=== PATIENT | male | born 1945 | race Hispanic/Latino ===

== ENCOUNTER 2018-07-22 06:23 | Emergency (ER) | payer MEDICARE, OTHER ==
[~2018-07-22] VITALS: Ht 162.6 cm; Wt 104.3 kg
[~2018-07-22 06:23] MED LIST: AMLODIPINE BESYL5 MG PO; ASPIRIN81 MG PO; ATENOLOL25 MG PO; DIGOXIN125 MCG PO; FUROSEMIDE40 MG PO; GABAPENTIN100 MG PO; GLIPIZIDE ER2.5 MG PO; ISOSORBIDE DINIT5 MG PO; JANUMET 50-1,01 EACH PO; LIPITOR20 MG PO; LISINOPRIL10 MG PO; NEXIUM20 MG PO; NIASPAN500 MG PO; RANEXA500 MG PO; SPIRONOLACTONE25 MG PO; TRICOR48 MG PO; WARFARIN SODIUM1 MG
--- OUTSIDE RECORDS SUMMARY | 2018-07-22 06:25 | XMS REPORT | Summary of Care ---
Author Author LUCY Pelletier, BARON Schrader Unknown Address Unknown Phone Unavailable Care Team Providers Care Inspector Welded Parts Name Role Phone VERONICA Pelletier, TOOTIE Unavailable Unavailable ABNER P.A., CARLO Unavailable Unavailable LUCY Pelletier, BARON Unavailable Unavailable VERONICA RAND [place], TOOTIE Dhillon Unavailable Unavailable Unavailable Unavailable Functional Status Name Dates Details Functional status health issues are not documented Status: Name Dates Details Cognitive status health issues are not documented Status: Problems Name Dates Details Screening for prostate cancer (V76.44, Z12.5) Status: Active Gastroenteritis (558.9, K52.9) Status: Active Diabetes mellitus type 2, uncontrolled (250.02, E11.65) Status: Active 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, 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) Status: Active Essential hypertension, benign (401.1, I10) Status: Active Diabetes with neurologic complications (250.60, E11.49) Status: Active Fatigue (780.79, R53.83) Status: Active Vitamin D deficiency (268.9, E55.9) Status: Active Claudication, intermittent (443.9, I73.9) Status: Active Edema (782.3, R60.9) Status: Active Medicare annual wellness visit, subsequent (V70.0, Z00.00) Status: Active Mixed hyperlipidemia (272.2, E78.2) Status: Active Peripheral neuropathy (356.9, G62.9) Status: Active Advance care planning (V65.49, Z71.89) Status: Active Encounter for mini-mental status examination Status: Active At moderate risk for fall (V15.88, Z91.81) Status: Active Depression screen (V79.0, Z13.31) Status: Active Need for hepatitis C screening test (V73.89, Z11.59) Status: Active CAD (coronary artery disease) (414.00, I25.10) Status: Active Acute pain of right knee (719.46, M25.561) Status: Active Need for Tdap vaccination (V06.1, Z23) Status: Active Need for zoster vaccination (V04.89, Z23) Status: Active Controlled type 2 diabetes mellitus with diabetic neuropathy, without long-term current use of insulin (250.60, E11.40) Status: Active Acute internal derangement of knee, right (717.9, M23.91) Status: Active Medications Name Dates Details Atorvastatin Calcium 80 MG Oral Tablet TAKE 1 TABLET AT BEDTIME. Quantity: 90 TOOTIE MARTIN M.D. Active Clopidogrel Bisulfate 75 MG Oral Tablet TAKE 1 TABLET DAILY. * Quantity: 90 Refills: 0 Active Isosorbide Mononitrate 20 MG Oral Tablet TAKE 1 TABLET TWICE DAILY * Quantity: 180 Refills: 1 TOOTIE MARTIN M.D. Active Furosemide 40 MG Oral Tablet Take one (1) tablet(s) by mouth daily. * Quantity: 90 Refills: 1 BARON AYALA M.D. * Start : 02-Jul-2017 Active Benazepril HCl - 10 MG Oral Tablet TAKE 1 TABLET DAILY. * Refills: 0 Active Aspirin 325 MG Oral Tablet TAKE 1 TABLET DAILY. * Refills: 0 Active Invokana 100 MG Oral Tablet Take before first meal * Quantity: 90 Refills: 0 BARON AYALA M.D. * Start : 26-May-2018 Active Gabapentin 600 MG Oral Tablet TAKE 2 TABLET TWICE DAILY FOR NEUROPATHY* * Quantity: 360 Refills: 1 TOOTIE MARTIN M.D. Active Fenofibrate 145 MG Oral Tablet TAKE 1 TABLET DAILY. * Quantity: 90 Refills: 1 TOOTIE MARTIN M.D. Active Esomeprazole Magnesium 40 MG Oral Capsule Delayed Release TAKE ONE CAPSULE BY MOUTH EVERY DAY * Quantity: 90 Refills: 1 TOOTIE MARTIN M.D. * Start : 28-Oct-2017 Active Toujeo SoloStar 300 UNIT/ML Subcutaneous Solution Pen-injector INJECT 33 UNITS SUBCUTANEOUSLY AT BEDTIME TITRATE TO GOAL DIRECTED * Quantity: 3 Refills: 1 BARON AYALA M.D. * Start : 17-Apr-2017 Active 3 x 1.5 ML Pen BD Pen Needle Mini U/F 31G X 5 MM USE EVERY DAY * Quantity: 1 Refills: 0 BARON AYALA M.D. * Start : 01-May-2018 Active 100 Unit Box Xu Microlet Lancets Check BG 3x a day * Quantity: 1 Refills: 4 LUCY Pelletier, BARON * Start : 17-Apr-2017 Active 100 Unit Package Accu-Chek SmartView In Vitro Strip TEST 3 TIMES DAILY. * Quantity: 3 Refills: 3 LUCY Pelletier, BARON * Start : 23-Apr-2017 Active 100 Strip Box Januvia 100 MG Oral Tablet TAKE 1 TABLET BY MOUTH EVERY DAY * Quantity: 90 Refills: 1 LUCY Pelletier, BARON * Start : 02-Oct-2017 Active Shingrix 50 MCG Intramuscular Suspension Reconstituted Administer at pharmacy as directed * Quantity: 1 Refills: 0 ABNER P.A., CARLO * Start : 20-May-2018 Active Tdap (Adacel) Inject at pharmacy as directed * Quantity: 1 Refills: 0 ABNER P.A., CARLO * Start : 20-May-2018 Active 0.5 ML Syringe Diclofenac Sodium 1 % Transdermal Gel Apply 4 grams to right knee QID PRN pain * Quantity: 1 Refills: 0 ABNER P.A., CARLO * Start : 20-May-2018 Active 100 GM Tube Allergies and Adverse Reactions Name Dates Details MetFORMIN HCl TABS (Allergy) Status: Active Past Medical History Name Dates Details History of depression (V11.8, Z86.59) Status: Resolved History of diabetes mellitus (V12.29, Z86.39) Status: Resolved History of hyperlipidemia (V12.29, Z86.39) Status: Resolved History of myocardial infarction (412, I25.2) Status: Resolved Procedures Procedure Dates Details XRAY Knee series 33337 Date: 20-May-2018 MR Knee wo contrast [id number] Date: 20-Jun-2018 History of Heart surgery Completed Immunization Name Dates Details Zoster (Zostavax) on: Jul-2011 Fluzone Quadrivalent 0.5 ML Intramuscular Suspension on: 31-Mar-2016 Influenza, high dose seasonal, preservative-free Lot #: [id number] on: 12-Apr-2017 Influenza, high dose seasonal, preservative-free Lot #: [id number] on: 11-Mar-2018 Family History Name Dates Details Family history unknown (V49.89, Z78.9) Status: Active Name Dates Details Family history unknown (V49.89, Z78.9) Status: Active Social History Name Dates Details - Status: Name Dates Details Never smoker Vital Signs Date Test Result Details [id number] Height 63 in Status: Weight 238.5 lb Status: Body Mass Index Calculated 42.25 kg/m2 Status: Body Surface Area Calculated 2.08 m2 Status: Results Date Description Value Details [id number] [U] XRAY KNEE 4 OR MORE VWS RIGHT [id number] XR KNEE 4 OR MORE VWS RIGHT Images acquired, not reported on this accession number. Plan of Care Name Dates Details Planned Observations Planned Goals not documented Planned Encounters Appointment; BARON AYALA M.D. On: 20-Aug-2018 8:40 Appointment; TOOTIE MARTIN M.D. On: 28-Aug-2018 10:00 Interventions Provided Medication Changes* Januvia 100 MG Oral Tablet - Renew Instructions Name Dates Details Instructions not documented Encounters Appointment; TOOTIE MARTIN M.D. Encounter Diagnosis: Problem not documented On: 21-Dec-2016 9:45 Appointment; TOOTIE MARTIN M.D. Encounter Diagnosis: Problem not documented On: 04-Jan-2017 12:30 Appointment; TOOTIE MARTIN M.D. Encounter Diagnosis: Problem not documented On: 28-Mar-2017 14:15 Appointment; BARON AYALA M.D. Encounter Diagnosis: Problem not documented On: 17-Apr-2017 13:00 Appointment; BARON AYALA M.D. Encounter Diagnosis: Problem not documented On: 30-Apr-2017 14:00 Appointment; BARON AYALA M.D. Encounter Diagnosis: Problem not documented On: 02-Jul-2017 14:40 Appointment; TOOTIE MARTIN M.D. Encounter Diagnosis: Problem not documented On: 28-Aug-2017 13:15 Appointment; BARON AYALA M.D. Encounter Diagnosis: Problem not documented On: 02-Oct-2017 14:00 Appointment; MERY BANDA M.D. Encounter Diagnosis: Problem not documented On: 17-Dec-2017 14:15 Appointment; ROSA SY Encounter Diagnosis: Problem not documented On: 27-Dec-2017 15:00 Appointment; BARON AYALA M.D. Encounter Diagnosis: Problem not documented On: 19-Feb-2018 13:40 Appointment; TOOTIE MARTIN M.D. Encounter Diagnosis: Problem not documented On: 26-Feb-2018 9:30 Appointment; CARLO LEVINE P.A. Encounter Diagnosis: Problem not documented On: 20-May-2018 8:15 Appointment; BARON AYALA M.D. Encounter Diagnosis: Problem not documented On: 20-May-2018 11:00 Appointment; ANJUM THOMPSON M.D. Encounter Diagnosis: Problem not documented On: 20-Jun-2018 14:00
--- OUTSIDE RECORDS SUMMARY | 2018-07-22 06:25 | XMS REPORT | Continuity of Care Document ---
Author Author [employer] Address Unknown Phone Unavailable Problems Problem Status Onset Date Classification Date Reported Comments Source UNK Active 07/17/2018 [facility] M25.561 - PAIN IN RIGHT KNEE Active 05/20/2018 [facility] Medications Medication Details Route Status Patient Instructions Ordering Provider Order Date Source Allergies, Adverse Reactions, Alerts Substance Category Reaction Severity Reaction type Status Date Reported Comments Source Immunizations Immunization Date Given Site Status Last Updated Comments Source Results Order Name Results Value Reference Range Date Interpretation Comments Source Chest 2 views DX Chest 2 views DX Clinical Indication: Coughing - preop exam Comparison: None FINDINGS: The PA and lateral chest radiographs shows normal lung volumes without interstitial or airspace opacities, pleural effusions or pneumothorax. The heart size and pulmonary vasculature are normal. The trachea is midline. There are no clinically significant osseous abnormalities noted. There are sternal wires and mediastinal surgical clips. IMPRESSION: No chest radiographic evidence of acute cardiopulmonary disease. SL: [id number] 07/18/2018 - - Read by: Loki Pennington MD Dictated Date/time: 07/18/18 11:33 Electronically Signed by: Loki Pennington MD 07/18/18 11:33 FINAL REPORT [facility] Knee wo contrast MRI Knee wo contrast MRI EXAMINATION: MRI of the right knee without contrast HISTORY: M23.91 Unspecified internal derangement of right knee; anterior and medial right knee pain x 2 months; right knee medial compartment chondrosis COMPARISON: Radiographs dated 05/20/2018 are reviewed. TECHNIQUE: Multiplanar, multisequence magnetic resonance imaging of the right knee is performed with an extremity coil without contrast. FINDINGS: Menisci: --Medial: The anterior horn, body, and posterior horn are intact. --Lateral: The anterior horn, body, and posterior horn are intact. Ligaments: The cruciate ligaments are intact. The medial collateral ligament and lateral collateral ligament complex are intact. Extensor mechanism: There is mild distal patellar tendinosis. The extensor mechanism is intact. Muscles: There is normal signal intensity and muscle bulk of the musculature at the knee. Cartilage: Within the medial compartment, there are foci of grade 3-4, near full-thickness to full-thickness, chondrosis along the anterior to central weightbearing medial femoral condyle and small near full-thickness chondral defect along the anterior aspect of the medial tibial plateau with underlying foci of subchondral edema. There are small foci of grade 2, deep partial thickness chondrosis along the posterior weightbearing and inferior aspect of the posterior flexion zone of the medial femoral condyle. Within the lateral compartment, there is no focal chondrosis or subchondral marrow edema. Within the patellofemoral compartment, there is a focal area of deep partial thickness chondrosis and chondral fissuring along the patellar median ridge near the mid pole the patella. The trochlear articular cartilage is normal. Bone: Again, there are foci of subchondral edema along the anterior to central weightbearing aspect of the medial compartment. There is mild ill-defined subcortical marrow edema within the central aspect of the proximal tibia. There is no acute fracture. There are no suspicious bone marrow replacing lesions. Soft tissues: There is mild subcutaneous edema superficial to the patellar tendon. There is a small to moderate-sized knee effusion with mild scattered synovitis. There is a 12 x 3 mm cartilaginous loose body along the lateral aspect of the intercondylar notch. There is no Cook's cyst. IMPRESSION: 1. Moderate medial and mild patellofemoral compartment, bicompartmental chondrosis of the right knee as described in detail above, most severe along the anterior to central weightbearing aspect of the medial compartment with underlying foci of subchondral edema. 2. Small to moderate-sized right knee effusion with mild scattered synovitis. There is also a 12 x 3 mm cartilaginous loose body along the lateral aspect of the intercondylar notch. 3. Mild distal right patellar tendinosis without tendon tear. 4. Nonspecific, mild, ill-defined subcortical marrow edema within the central aspect of the proximal tibia without acute fracture. 5. Intact right knee menisci, cruciate ligaments, and collateral ligaments. 07/03/2018 - - Read by: Oh Marie MD Dictated Date/time: 07/03/18 14:45 Electronically Signed by: Oh Marie MD 07/03/18 14:59 FINAL REPORT OPIRiana Sama Knee 1-2 Views unilateral DX Knee 1-2 Views unilateral DX EXAM: XR RIGHT KNEE 2 VIEWS DATE: 05/20/2018 9:15 AM [facility] INDICATION: acute pain of right knee COMPARISON: None. TECHNIQUE: AP and lateral radiographs of the knee FINDINGS: No acute fracture or malalignment is identified. Mild medial compartment joint space narrowing is identified on these nonweightbearing radiographs. No knee joint effusion is present. No soft tissue abnormality is identified. IMPRESSION: No acute abnormality. 05/20/2018 - - This report was dictated by a Gathering Worker/Fellow. I have personally reviewed the images as well as the Resident's interpretation and agree with the findings. Read by: Stefan Arango MD Resident: Stefan Arango MD Dictated Date/time: 05/20/18 09:57 Electronically Signed by: Esther Reinoso MD 05/20/18 10:50 FINAL REPORT [facility] Vital Signs Vital Sign Value Date Comments Source Encounters Location Location Details Encounter Type Encounter Number Reason For Visit Attending Provider ADM Date DC Date Status Source Procedures Procedure Code Date Perfomer Comments Source
[2018-07-22] MEDS ORDERED: TRAMADOL HCL 50 MG TAB PO ONE (06:45)
--- NOTE | 2018-07-22 07:00 | NUR ---
RECEIVED REPORT FROM OFF GOING NURSE. PATIENT IN ROOM IN STRETCHER. PENDING X-RAY AND ULTRASOUND TO R/O DVT. MEDICATED FOR PAIN BY EVENING SHIFT NURSE. BED DOWN CALL ALESSANDRO ODOM.
--- NOTE | 2018-07-22 07:30 | Diagnostic Imaging Report ---
Exam: Left hip series, 2 views. History: Left hip pain. Comparison: None. Findings: There is normal bone mineralization. No evidence of fracture, malalignment, or soft tissue abnormality. There are moderate degenerative changes of the left hip with joint space during and bony osteophyte formation. AP radiograph of the pelvis demonstrates moderate right hip, bilateral sacroiliac, lower lumbar spine, and mild pubic symphysis degenerative changes. Bowel gas partially obscures visualization of the sacrum. Impression: No acute radiographic abnormality. Moderate bilateral hip osteoarthritis. Signed by: Dr. Tricia Dunn MD on 07/22/2018 7:26 AM
== END 2018-07-22 10:27 | disposition home or self-care (01) ==
LOC: ER 06:23
DX: M79.605 Pain in left leg (principal); M54.16 Radiculopathy, lumbar region; I10 Essential (primary) hypertension; E11.9 Type 2 diabetes mellitus without complications; E78.5 Hyperlipidemia, unspecified; Z86.73 Personal history of transient ischemic attack (TIA), and cerebral infarction without residual deficits
CPT/HCPCS: 93971; 99284

== ENCOUNTER → 2019-11-05 | Day surgery (SDC) | payer MEDICARE ==
[2019-11-02 09:40] LABS: BASOPHILS # (AUTO) 0.1 (0.0-0.1); BASOPHILS % 0.6 % (0.0-1.0); EOSINOPHILS # (AUTO) 0.3 (0.0-0.4); EOSINOPHILS % 3.4 % (0.0-6.0); HEMATOCRIT 43.9 % (38.2-49.6); HEMOGLOBIN 13.9 g/dL (14.0-18.0); LYMPHOCYTES # (AUTO) 1.7 (1.0-3.2); MEAN CORPUSCULAR HEMOGLOBIN 28.8 pg (28-32); MEAN CORPUSCULAR HGB CONC 31.7 g/dL (31-35); MEAN CORPUSCULAR VOLUME 90.9 fL (81-99); MONOCYTES # (AUTO) 0.6 (0.2-0.8); MONOCYTES % 7.5 % (4.4-11.3); NEUTROPHILS # (AUTO) 5.1 (2.1-6.9); PLATELET COUNT 226 x10e3/uL (140-360); RED BLOOD COUNT 4.83 x10e6/uL (4.3-5.7); RED CELL DISTRIBUTION WIDTH 13.3 % (11.7-14.4)
[~2019-11-05] MED LIST changes: +ASPIRIN325 MG PO; +ATORVASTATIN CA80 MG PO; +BENAZEPRIL HCL10 MG PO; +FENOFIBRATE145 MG PO; +GABAPENTIN300 MG PO; +INVOKANA100 MG PO; +ISOSORBIDE MONO30 MG PO; +JANUVIA100 MG PO; +LIDOCAINE HCL 2% LOCAL INJ 5 ML SDV VIAL INJ ONE; +NITROGLYCERIN0.4 MG SL; +OMEPRAZOLE40 MG PO; +PLAVIX75 MG PO; +PROPOFOL IV EMULSION 10 MG/ML 20 ML VIAL ONE; +TOUJEO SOL300 UNIT/1 SC
--- OUTSIDE RECORDS SUMMARY | 2019-11-05 06:21 | XMS REPORT | Summary of Care ---
Author ALVIN Bragg M.A. Organization Unknown Address Unknown Phone Unavailable Care Team Providers Care Tub Wash Operator Name Role Phone VERONICA Pelletier, TOOTIE Unavailable Unavailable KELLY Pelletier, JOSELINE Unavailable Unavailable ABNER P.A., CARLO Unavailable Unavailable LUCY Pelletier, BARON Unavailable Unavailable VERONICA RAND [place], TOOTIE Dhillon Unavailable Unavailable KELLY RAND, JOSELINE Unavailable Unavailable JAY RAND CO, ANJUM Viera Unavailable Unavailable MAICOL PENDLETONP, JESSE Unavailable Unavailable LUCY RAND [place], BARON PHIPPS Unavailable Unavaildavid ORTEZ MD, MARGARETUSTAFJesse Unavailable Unavailable GISELE RAND CO, JENNIFER BANERJEE Unavailable Unavailable Unavailable Unavailable Functional Status Name Dates Details Functional status health issues are not documented Status: Name Dates Details Cognitive status health issues are not d ocumented Status: Problems Name Dates Details Screening for prostate cancer (V76.44, Z 12.5) Status: Active 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, 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) Status: Active Fatigue (780.79, R53.83) Status: Active Vitamin D deficiency (268.9, E55.9) Status: Active Claudication, intermittent (443.9, I73.9 ) Status: Active Edema (782.3, R60.9) Status: Active Need for hepatitis C screening test (V73 .89, Z11.59) Status: Active CAD (coronary artery disease) (414.00, I 25.10) Status: Active Acute pain of right knee (719.46, M25.56 1) Status: Active Need for Tdap vaccination (V06.1, Z23) Status: Active Need for zoster vaccination (V04.89, Z23 ) Status: Active Acute low back pain with left-sided scia marii (724.2, M54.42) Status: Active Acute internal derangement of knee, righ t (717.9, M23.91) Status: Active Diabetes mellitus type 2, uncontrolled ( 250.02, E11.65) Status: Active Gastroenteritis (558.9, K52.9) Status: Active Bronchitis (490, J40) Status: Active Adult BMI 39.0-39.9 kg/sq m (V85.39, Z68 .39) Status: Active Essential hypertension, benign (401.1, I 10) Status: Active Mixed hyperlipidemia (272.2, E78.2) Status: Active Allergic dermatitis (692.9, L23.9) Status: Active Myofascial pain syndrome (729.1, M79.18) Status: Active Lumbar spondylosis (721.3, M47.816) Status: Active Diabetes with neurologic complications ( 250.60, E11.49) Status: Active 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, E13.42) Status: Active Peripheral neuropathy (356.9, G62.9) Status: Active Controlled type 2 diabetes mellitus with diabetic neuropathy, without long-term current use of insulin (250.60, E11.40) Status: Active Medicare annual wellness visit, subseque nt (V70.0, Z00.00) Status: Active Depression screen (V79.0, Z13.31) Status: Active Advance care planning (V65.49, Z71.89) Status: Active Encounter for mini-mental status examina tion Status: Active At moderate risk for fall (V15.88, Z91.8 1) Status: Active Need for vaccination with 13-polyvalent pneumococcal conjugate vaccine (V03.82, Z23) Status: Active Medications Name Dates Details Atorvastatin Calcium 80 MG Oral Tablet TAKE 1 TABLET BY MOUTH EVERYDAY AT BEDTIME Quantity: 90 TOOTIE MARTIN M.D. * Start : 21-Oct-2018 Active Clopidogrel Bisulfate 75 MG Oral Tablet TAKE 1 TABLET DAILY. * Quantity: 90 Refills: 0 Active Isosorbide Mononitrate 20 MG Oral Tablet Take 1 tablet by mouth twice a day * Quantity: 180 Refills: 1 TOOTIE MARTIN M.D. * Start : 17-Nov-2018 Active Furosemide 40 MG Oral Tablet TAKE 1 TABLET BY MOUTH EVERY DAY * Quantity: 90 Refills: 0 BARON AYALA M.D. * Start : 02-Jul-2017 Active Benazepril HCl - 10 MG Oral Tablet TAKE 1 TABLET DAILY. * Refills: 0 Active Aspirin 325 MG Oral Tablet TAKE 1 TABLET DAILY. * Refills: 0 Active Invokana 100 MG Oral Tablet TAKE 1 TABLET DAILY with breakfast for blood sugar. Keep well hydrated. * Quantity: 90 Refills: 0 BARON AYALA M.D. * Start : 26-Feb-2018 Active Gabapentin 600 MG Oral Tablet TAKE 2 TABLETS BY MOUTH in am and bedtime * Quantity: 360 Refills: 2 BARON AYALA M.D. * Start : 19-Aug-2018 Active Fenofibrate 145 MG Oral Tablet TAKE 1 TABLET BY MOUTH EVERY DAY * Quantity: 90 Refills: 1 TOOTIE MARTIN M.D. * Start : 19-Aug-2018 Active Esomeprazole Magnesium 40 MG Oral Capsule Delayed Release TAKE 1 CAPSULE BY MOUTH EVERY DAY * Quantity: 90 Refills: 1 TOOTIE MARTIN M.D. * Start : 28-Oct-2017 Active BD Pen Needle Mini U/F 31G X 5 MM USE EVERY DAY DIRECTED * Quantity: 1 Refills: 0 BARON AYALA M.D. * Start : 17-Apr-2017 Active 100 Unit Box Xu Microlet Lancets MISC Check BG 3x a day * Quantity: 1 Refills: 4 BARON AYALA M.D. * Start : 17-Apr-2017 Active 100 Unit Package Accu-Chek SmartView In Vitro Strip TEST 3 TIMES DAILY. * Quantity: 3 Refills: 3 BARON AYALA M.D. * Start : 23-Apr-2017 Active 100 Strip Box Januvia 100 MG Oral Tablet TAKE 1 TABLET BY MOUTH EVERY DAY * Quantity: 90 Refills: 1 BARON AYALA M.D. * Start : 02-Oct-2017 Active Shingrix 50 MCG Intramuscular Suspension Reconstituted Administer at pharmacy as directed * Quantity: 1 Refills: 0 ABNER P.CARLO Woodall * Start : 20-May-2018 Active Tdap (Adacel) Inject at pharmacy as directed * Quantity: 1 Refills: 0 ABNER P.A.CARLO * Start : 20-May-2018 Active 0.5 ML Syringe Cyclobenzaprine HCl - 5 MG Oral Tablet TAKE 1 TABLET 3 TIMES DAILY NEEDED. * Quantity: 90 Refills: 2 JOSELINE MENDOZA M.D. * Start : 01-Apr-2019 Active Allergies and Adverse Reactions Name Dates Details metFORMIN HCl TABS (Allergy) Status: Act hayden Past Medical History Name Dates Details History of BMI 40.0-44.9, adult (V85.41, Z68.41) Status: Resolved History of depression (V11.8, Z86.59) Status: Resolved History of diabetes mellitus (V12.29, Z8 6.39) Status: Resolved History of hyperlipidemia (V12.29, Z86.3 9) Status: Resolved History of myocardial infarction (412, I 25.2) Status: Resolved Procedures Procedure Dates Details History of Heart surgery Completed Immunization Name Dates Details Zoster (Zostavax) on: Jul-2011 Fluzone Quadrivalent 0.5 ML Intramuscula r Suspension on: 31-Mar-2016 Influenza, high dose seasonal, preservat hayden-free Lot #: [id number] on: 12-Apr-2017 Influenza, high dose seasonal, preservat hayden-free Lot #: [id number] on: 11-Mar-2018 Fluzone High-Dose 0.5 ML Intramuscular S uspension Prefilled Syringe on: 01-Mar-2019 Influenza on: Mar-2019 Influenza, high dose seasonal, preservat hayden-free Lot #: [id number] on: 13-Mar-2019 Prevnar 13 Intramuscular Suspension Lot #: [id number] on: 10-Jun-2019 Family History Name Dates Details Family history unknown (V49.89, Z78.9) Status: Active Name Dates Details Family history unknown (V49.89, Z78.9) Status: Active Social History Name Dates Details - Status: Name Dates Details Never smoker Vital Signs Date Test Result Details No Known Vitals to report Results Date Description Value Details Results not documented Plan of Care Name Dates Details Planned Observations Planned Goals not documented Planned Encounters Appointment; TOOTIE MARTIN M.D. On: 19-Aug-2019 13:30 Appointment; BARON AYALA M.D. On: 26-Aug-2019 14:00 Interventions Provided Medication Changes* Invokana 100 MG Oral Tablet - Renew Instructions Name Dates Details Instructions not documented Encounters Appointment; TOOTIE MARTIN M.D. Encounter Diagnosis: Problem not documented On: 28-Aug-2017 13:15 Appointment; BARON AYALA M.D. Encounter Diagnosis: Problem not documented On: 02-Oct-2017 14:00 Appointment; MERY BANDA M.D. Encounter Diagnosis: Problem not documented On: 17-Dec-2017 14:15 Appointment; KERRIE, ROSA Encounter Diagnosis: Problem not documented On: 27-Dec-2017 [...] Diagnosis: Problem not documented On: 20-Jun-2018 14:00 Appointment; ANJUM THOMPSON M.D. Encounter Diagnosis: Problem not documented On: 17-Jul-2018 11:00 Appointment; JESSE MILIAN NP Encounter Diagnosis: Problem not documented On: 22-Jul-2018 14:00 Appointment; BARON AYALA M.D. Encounter Diagnosis: Problem not documented On: 20-Aug-2018 8:40 Appointment; TOOTIE MARTIN M.D. Encounter Diagnosis: Problem not documented On: 28-Aug-2018 10:00 Appointment; TOOTIE MARTIN M.D. Encounter Diagnosis: Problem not documented On: 28-Aug-2018 10:00 Appointment; JG ORTEZ M.D. Encounter Diagnosis: Problem not documented On: 01-Sep-2018 8:00 Appointment; LAMINE SAUCEDO P.A. Encounter Diagnosis: Problem not documented On: 06-Oct-2018 8:00 Appointment; PERNELL JERONIMO M.D. Encounter Diagnosis: Problem not documented On: 06-Oct-2018 14:45 Appointment; BARON AYALA M.D. Encounter Diagnosis: Problem not documented On: 18-Nov-2018 15:20 Appointment; BARON AYALA M.D. Encounter Diagnosis: Problem not documented On: 18-Feb-2019 14:00 Appointment; TOOTIE MARTIN M.D. Encounter Diagnosis: Problem not documented On: 23-Feb-2019 14:00 Appointment; JOSELINE MENDOZA M.D. Encounter Diagnosis: Problem not documented On: 01-Apr-2019 11:00 Appointment; BARON AYALA M.D. Encounter Diagnosis: Problem not documented On: 27-May-2019 14:00 Appointment; TOOTIE MARTIN M.D. Encounter Diagnosis: Problem not documented On: 10-Jun-2019 14:00 Appointment; JOSELINE MENDOZA M.D. Encounter Diagnosis: Problem not documented On: 08-Jul-2019 15:00
--- OUTSIDE RECORDS SUMMARY | 2019-11-05 06:21 | XMS REPORT | Summary of Care ---
Author ALVIN Emerson M.D. Organization Unknown Address Unknown Phone Unavailable Care Team Providers Care Roll Grinder Name Role Phone VERONICA Pelletier, TOOTIE Unavailable Unavailable KELLY Pelletier, JOSELINE Unavailable Unavailable ABNER P.A., CARLO Unavailable Unavailable LUCY Pelletier, BARON Unavailable Unavailable VERONICA RAND CA, TOOTIE Dhillon Unavailable Unavailable KELLY RAND, JOSELINE Unavailable Unavailable JAY RAND CA, ANUJM Viera Unavailable Unavailable MAICOL PENDLETONP, JESSE Unavailable Unavailable LUCY RAND CA, BARON PHIPPS Unavailable Unavaildavid ORTEZ MD, MOUSTAFA Unavailable Unavailable GISELE RAND CA, JENNIFER BANERJEE Unavailable Unavailable Unavailable Unavailable Functional [...] and bedtime * Quantity: 360 Refills: 2 LUCY Pelletier, BARON * Start : 19-Aug-2018 Active Fenofibrate 145 [...] directed * Quantity: 1 Refills: 0 ABNER Hu.CARLO Woodall * Start : 20-May-2018 Active Tdap (Adacel) Inject at pharmacy as directed * Quantity: 1 Refills: 0 ABNER P.CARLO Woodall * Start : 20-May-2018 Active 0.5 ML Syringe Cyclobenzaprine HCl - 5 MG Oral Tablet TAKE 1 TABLET 3 TIMES DAILY NEEDED. * Quantity: 90 Refills: 2 KELLY Pelletier, JOSELINE * Start : 01-Apr-2019 Active Allergies and [...] high dose seasonal, preservat hayden-free Lot #: [id number] on: 12-Apr-2017 Influenza, high dose seasonal, preservat hayden-free Lot #: [id number] on: 11-Mar-2018 Fluzone High-Dose 0.5 ML Intramuscular S uspension Prefilled Syringe on: 01-Mar-2019 Influenza on: Mar-2019 Influenza, high dose seasonal, preservat hayden-free Lot #: [id number] on: 13-Mar-2019 Prevnar 13 Intramuscular Suspension Lot #: [id number] on: 10-Jun-2019 Family History Name Dates Details Family history unknown (V49.89, Z78.9) Status: Active Name Dates Details Family history unknown (V49.89, Z78.9) Status: Active Social History Name Dates Details - Status: Name Dates Details Never smoker Vital Signs Date Test Result Details [id number] Physical Findings 0 Status: Comments: PH Q-9 Adult Depression Screening [id number] BP Systolic 99 mm[Hg] Status: Comments: Lo cation: LUE; Position: Sitting BP Diastolic 56 mm[Hg] Status: Comments: Lo cation: LUE; Position: Sitting Heart Rate 81 /min Status: Comments: Lo cation: L Brachial Artery; [id number]:58 Height 64 in Status: Weight 234.4375 lb Status: Body Mass Index Calculated 40.24 kg/m2 Status: Body Surface Area Calculated 2.09 m2 Status: Temperature 98.7 f Status: Comments: Me thod: Temporal Respiration Rate 16 /min Status: Physical Findings 0 Status: Comments: Al cohol Screen - How many times in the past yr have you had 5 (for M) or 4 (for F) or 4 (for all > 65yrs) or more drinks in a day? :57 Physical Findings 0 Status: Comments: Al cohol Screen - How many times in the past yr have you had 5 (for M) or 4 (for F) or 4 (for all > 65yrs) or more drinks in a day? :13 BP Systolic 109 mm[Hg] Status: Comments: Lo cation: LUE; Position: Sitting BP Diastolic 60 mm[Hg] Status: Comments: Lo cation: LUE; Position: Sitting Heart Rate 80 /min Status: Height 64 in Status: Weight 235.6 lb Status: Body Mass Index Calculated 40.44 kg/m2 Status: Body Surface Area Calculated 2.1 m2 Status: Results Date Description Value Details :14 [O] Hemoglobin A1c (in office) HEMOGLOBIN A1c 6.4 :16 Glucose (Point of Care In Office) Glucose POC Lifescan 196 :38 [QLH] BASIC METABOLIC PANEL W/EGFR Glucose Lvl 204 mg/dl (Above high threshold ) Range: 70-99 Comments: Adult reference range values reflect the clinical guidelinesof the [place] [employer]. Blood Urea Nitrogen 31 mg/dl (Above high thresh old) Range: 7-22 Creatinine Lvl 1.50 mg/dl (Above high threshol d) Range: 0.50-1.40 Sodium Level 140 {mEq/l} Range: 135-145 Potassium Level 4.2 {mEq/l} Range: 3.5-5.1 Chloride Level 108 {mEq/l} Range: 95-109 Carbon Dioxide 24 {mEq/l} Range: 24-32 AGAP 12.2 {mEq/l} Range: 10.0-20.0 Calcium Level Total 8.9 mg/dl Range: 8.5-1 0.5 eGFR 46 {ML/MIN/1.7} Comments: The e GFR is calculated using the CKD-EPI formula. In most young, healthyindividuals the eGFR will be >90 mL/min/1.73m2. The eGFR declines with age. AneGFR of 60-89 may be normal in some populations, particularly the elderly, forwhom the CKD-EPI formula has not been extensively validated. Use of the eGFR isnot recommended in the following populations:Individuals with unstable creatinine concentrations, including patients and those with serious co-morbid conditions.Patients with extremes in muscle mass or diet.The data above are obtained from the National Kidney Disease Education Program(NKDEP) which additionally recommends that when the eGFR is used in patientswith extremes of body mass index for purposes of drug dosing, the eGFR shouldbe multiplied by the estimated BMI. Plan of Care Name Dates Details Planned Observations Planned Goals not documented Planned Encounters Appointment; JOSELINE MENDOZA M.D. On: 08-Jul-2019 15:00 Appointment; TOOTIE MARTIN M.D. On: 19-Aug-2019 13:30 Appointment; BARON AYALA M.D. On: 26-Aug-2019 14:00 Interventions Provided Medication Changes* Furosemide 40 MG Oral Tablet - Renew Instructions Name Dates Details Instructions not documented Encounters Appointment; BARON AYALA M.D. Encounter Diagnosis: Problem [...]
--- OUTSIDE RECORDS SUMMARY | 2019-11-05 06:21 | XMS REPORT | Summary of Care ---
Author Author [facility] Outpatient Imaging - [facility] Organization [facility] Outpatient Imaging [facility] Address Unknown Phone Unavailable Encounter HQ Daya_jarrett(FIN) [id number] Date(s): 05/20/18 - 05/20/18 [facility] Outpatient Imaging [address], [address] [place], [place] [address] [phone] Encounter Diagnosis Pain in right knee (Final) - 05/27/18 Discharge Disposition: Home or Self Care Attending Physician: Wily Adam MD Referring Physician: Wily Adam MD Vital Signs No data available for this section Problem List Condition Effective Dates Status Health Status Informan t Stroke(Confirmed) Resolved DM (diabetes Active mellitus)(Confirmed) GERD Active (gastroesophageal reflux disease)(Confirmed) Hypercholesterolemia Active (Confirmed) HTN Active (hypertension)(Confi rmed) Heart Resolved attack(Confirmed) Allergies, Adverse Reactions, Alerts Substance Reaction Severity Status metFORMIN Active Medications No data available for this section Results No data available for this section Immunizations No data available for this section Procedures Procedure Date Related Diagnosis Body Site Status 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 Type: Mariju elicia. Recreational Drug Route: Inhaled. Alcohol Current, Type Beer.1 Smoking Status Never smoker; Exposure to T obacco Smoke None; Cigarette Smoking Last 365 Days No; Reg Smoking Cessation Counseli ng No entered on: 07/18/18 1socially Assessment and Plan No data available for this section
--- OUTSIDE RECORDS SUMMARY | 2019-11-05 06:21 | XMS REPORT | Summary of Care ---
Author Author [facility] Outpatient Imaging - [facility] Organization [facility] Outpatient Imaging - [facility] Address Unknown Phone Unavailable Encounter HQ Sobeida(FIN) [id number] Date(s): 07/03/18 - 07/03/18 [facility] [address] [address] [phone] Encounter Diagnosis Unspecified internal derangement of right knee (Final) - 07/07/18 Effusion, right knee (Final) - Synovitis and tenosynovitis, unspecified (Final) - Discharge Disposition: Home or Self Care Attending Physician: Wilfredo Douglas MD Referring Physician: Wilfredo Douglas MD Vital Signs No data available for [...]
--- OUTSIDE RECORDS SUMMARY | 2019-11-05 06:21 | XMS REPORT ---
Author Author [facility] t Organization [facility] Address Unknown Phone Unavailable Care Team Providers Care Supervisor Contact Lens Name Role Phone VERONICA RAND, Y TOOTIE PP BARON AYALA M.D. Unavailable Unavailable TOOTIE MARTIN M.D. Unavailable Unavailable JOSELINE MENDOZA M.D. Unavailable Unavailable PERNELL JERONIMO M.D. Unavailable Unavailable LAMINE SAUCEDO, P.ALinsey Unavailable Unavailable JG ORTEZ M.D. Unavailable Unavailable ANJUM THOMPSON M.D. Unavailable Unavailable JESSE MILIAN APRN Unavailable Unavailable Ramu ESQUEDA Unavailable Unavailable CARLO LEVINE, P.ALinsey Unavailable Unavailable ANSHUL-, ECHO Unavailable Unavailable MERY BANDA M.D. Unavailable Unavailable Payers Payer Name Policy Type Policy Number Effective Date Expiration D ate [facility] [id number] 2018 00:00:0 0 [facility] [employer] [id number] Problems Condition Name Condition Details Condition Category Status Onset Date Resolution Date Last Treatment Date Treating Clinician Comments History of depression History of depression Problem Resolved History of diabetes mellitus History of diabetes mellitus Problem Re solved History of hyperlipidemia History of hyperlipidemia Problem Resolved History of myocardial infarction History of myocardial infarctio n Problem Resolved Essential hypertension, benign Essential hypertension, benign Problem Active CAD (coronary artery disease) CAD (coronary artery disease) Problem Active Mixed hyperlipidemia Mixed hyperlipidemia Problem Active Controlled type 2 diabetes mellitus with diabetic neuropathy, without long-term current use of insulin Controlled type 2 diabetes mellitus with diabetic neuropathy, without long-term current use of insulin Problem Active Gastroenteritis Gastroenteritis Problem Active Encounter for mini-mental status examination Encounter for mini-mental status examination Problem Active Varicose vein of leg Varicose vein of leg Problem Active Fatigue Fatigue Problem Active Vitamin D deficiency Vitamin D deficiency Problem Active Claudication, intermittent Claudication, intermittent Problem Active Peripheral neuropathy Peripheral neuropathy Problem Active Edema Edema Problem Active At moderate risk for fall At moderate risk for fall Problem Active Need for hepatitis C screening test Need for hepatitis C screeni ng test Problem Active Acute pain of right knee Acute pain of right knee Problem Active Need for Tdap vaccination Need for Tdap vaccination Problem Active Need for zoster vaccination Need for zoster vaccination Problem Active Acute internal derangement of knee, right 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, right Problem Active Diabetes with neurologic complications Diabetes with neurolo gic complications Problem Active Acute low back pain with left-sided sciatica Acute low back pain with left-sided sciatica Problem Active History of BMI 40.0-44.9, adult History of BMI 40.0-44.9, adult Problem Resolved Diabetes mellitus type 2, uncontrolled Diabetes mellitus typ e 2, uncontrolled Problem Active Bronchitis Bronchitis Problem Active Diabetic polyneuropathy associated with other specifie d diabetes mellitus 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 Problem Active Adult BMI 39.0-39.9 kg/sq m Adult BMI 39.0-39.9 kg/sq m Problem Active Allergic dermatitis Allergic dermatitis Problem Active Myofascial pain syndrome Myofascial pain syndrome Problem Active Lumbar spondylosis Lumbar spondylosis Problem Active Need for vaccination with 13-polyvalent pneumococcal c onjugate vaccine Need for vaccination with 13-polyvalent pneumococcal conjugate vaccine Problem Ac tive GERD without esophagitis GERD without esophagitis Problem Active Renal insufficiency Renal insufficiency Problem Active Allergies, Adverse Reactions, Alerts Allergy Name Allergy Type Status Severity Reaction(s) Onset Date Inacti ve Date Treating Clinician Comments Metformin Allergy to Substance Active Moderate N/V 2016-08-14 00:00 :00 No Known Allergies DA Active U 2015-09-20 00:00:00 metFORMIN HCl TABS Allergy to drug (finding) Active Medications Ordered Medication Name Filled Medication Name Start Date Stop Da te Current Medication? Ordering Clinician Indication Dosage Frequency Signature (SIG) Comments Components Touguillermina SoloStar 300 UNIT/ML Subcutaneous Solution Pen- injector Toumehdio SoloStar 300 UNIT/ML Subcutaneous Solution Pen-injector 2019-08-10 00:00:00 Yes BARON AYALA M.D. INJECT 33 UNITS SUBCUTANEOUSLY AT BEDTIME TITRATE TO GOAL DIRECTED Cyclobenzaprine HCl - 5 MG Oral Tablet Cyclobenzaprine HCl - 5 MG Oral Tablet 2019-04-01 00:00:00 Yes JOSELINE MENDOZA M.D. 1 Q0.3 333D TAKE 1 TABLET 3 TIMES DAILY NEEDED. Isosorbide Mononitrate 20 MG Oral Tablet Isosorbide Mo nonitrate 20 MG Oral Tablet 2018-11-17 00:00:00 Yes TOOTIE MARTIN M.D. 1 Q0.5 D Take 1 tablet by mouth twice a day Atorvastatin Calcium 80 MG Oral Tablet Atorvastatin Calcium 80 MG Oral Tablet 2018-10-21 00:00:00 Yes TOOTIE MARTIN M.D. 1 TAKE 1 TABLET BY MOUTH EVERYDAY AT BEDTIME Gabapentin 600 MG Oral Tablet Gabapentin 600 MG Oral Tablet 2018 00:00:00 Yes BARON AYALA M.D. TAKE 2 TABLETS BY CHRISTIANO TH in am and bedtime Fenofibrate 145 MG Oral Tablet Fenofibrate 145 MG Oral Table t 2018-08-19 00:00:00 Yes TOOTIE MARTIN M.D. 1 QD TAKE 1 TABLET B Y MOUTH EVERY DAY Shingrix 50 MCG Intramuscular Suspension Reconstituted Shingrix 50 MCG Intramuscular Suspension Reconstituted 2018-05-20 00:00:00 Yes CARLO LEVINE P.ALinsey Administer at pharmacy as directed Tdap (Adacel) Tdap (Adacel) 2018-05-20 00:00:00 Yes CARLO SERRA P.ALinsey Inject at pharmacy as directed Invokana 100 MG Oral Tablet Invokana 100 MG Oral Tablet 2018-02-26 00:00:00 Yes BARON AYALA M.D. TAKE 1 TA BLET DAILY with breakfast for blood sugar. Keep well hydrated. Esomeprazole Magnesium 40 MG Oral Capsule Delayed Rele ase Esomeprazole Magnesium 40 MG Oral Capsule Delayed Release 2017-10-28 00:00:00 Yes DEBORA MARTIN M.D. 1 QD TAKE 1 CAPSULE BY MOUTH EVERY DAY Januvia 100 MG Oral Tablet Januvia 100 MG Oral Tablet 2017-10-02 00:0 0:00 Yes BARON AYALA M.D. QD TAKE 1 TABLET BY MOUTH EVERY DAY Furosemide 40 MG Oral Tablet Furosemide 40 MG Oral Tablet 00:00:00 Yes BARON AYALA M.D. 1 QD TAKE 1 TABLET BY MOUT H EVERY DAY Accu-Chek SmartView In Vitro Strip Accu-Chek SmartView In Vi tro Strip 2017-04-23 00:00:00 Yes BARON AYALA M.D. Q0.3333D TEST 3 TIME S DAILY. BD Pen Needle Mini U/F 31G X 5 MM BD Pen Needle Mini U/F 31G X 5 MM 2017-04-17 00:00:00 Yes BARON AYALA M.D. USE EVERY DA Y DIRECTED Xu Microlet Lancets [facility] Xu Microlet Lancets [facility] 2017-04-17 00:00:00 Yes BARON AYALA M.D. Check BG 3x a day Amlodipine Besylate 5 Mg Tablet Amlodipine Besylate 5 Mg Tablet Yes 5 Daily Aspirin 81 Mg Tab.chew Aspirin 81 Mg Tab.chew Yes 81 Daily Atenolol 25 Mg Tablet Atenolol 25 Mg Tablet Yes 25 Daily Atorvastatin Calcium (Lipitor) 20 Mg Tablet Atorvastat in Calcium (Lipitor) 20 Mg Tablet Yes 20 Bedtime Digoxin 125 Mcg Tablet Digoxin 125 Mcg Tablet Yes 125 Daily Esomeprazole Magnesium (Nexium) 20 Mg Capsule.dr Koenig prazole Magnesium (Nexium) 20 Mg Capsule. Yes 20 Daily Fenofibrate (Tricor) 48 Mg Tab Fenofibrate (Tricor) 48 Mg Tab Yes 48 Daily Furosemide 40 Mg Tablet Furosemide 40 Mg Tablet Yes 40 Daily Gabapentin 100 Mg Capsule Gabapentin 100 Mg Capsule Yes 100 Three Times A Day Glipizide (Glipizide Er) 2.5 Mg Tab.er.24 Glipizide (G lipizide Er) 2.5 Mg Tab.er.24 Yes 2.5 Daily Isosorbide Dinitrate 5 Mg Tablet Isosorbide Dinitrate 5 Mg Tablet Yes 5 Daily Lisinopril 10 Mg Tablet Lisinopril 10 Mg Tablet Yes 10 Daily Niacin (Niaspan) 500 Mg Tab.er.24h Niacin (Niaspan) 500 Mg Tab.er.24h Yes 500 As Needed Ranolazine (Ranexa) 500 Mg Tabsr Ranolazine (Ranexa) 500 Mg Tabsr Yes 500 Daily Sitagliptin Phos/Metformin Hcl (Janumet 50-1,000 Mg Ta blet) 1 Each Tablet Sitagliptin Phos/Metformin Hcl (Janumet 50-1,000 Mg Tablet) 1 Each Tablet Yes 1 Daily Spironolactone 25 Mg Tablet Spironolactone 25 Mg Tablet Yes 25 Daily Warfarin Sodium 1 Mg Tablet Warfarin Sodium 1 Mg Tablet Yes Unk Dose Clopidogrel Bisulfate 75 MG Oral Tablet Clopidogrel Bisulfat e 75 MG Oral Tablet Yes QD TAKE 1 TABLET DAILY. Benazepril HCl - 10 MG Oral Tablet Benazepril HCl - 10 MG Oral Tablet Yes 1 QD TAKE 1 TABLET DAILY. Aspirin 325 MG Oral Tablet Aspirin 325 MG Oral Tablet Yes 1 QD TAKE 1 TABLET DAILY. Immunizations Ordered Immunization Name Filled Immunization Name Date Sta tu Comments Prevnar 13 Intramuscular Suspension 2019-06-10 09:52:0 0 Completed Influenza, high dose seasonal, preservative-free 2019-03-13 00:00:00 Completed Fluzone High-Dose 0.5 ML Intramuscular Suspension Prefilled Syringe 2019-03-01 00:00:00 Completed Influenza, high dose seasonal, preservative-free 2018-03-11 00:00:00 Completed Influenza, high dose seasonal, preservative-free 2017-04-12 00:00:00 Completed Fluzone Quadrivalent 0.5 ML Intramuscular Suspension 2016-03-31 00:00:00 Completed Zoster (Zostavax) Unknown Completed Influenza Unknown Completed Vital Signs Vital Name Observation Time Observation Value Comments Systolic blood pressure 2019-08-26 14:08:00 112 mm[Hg] Loca tion: LUE; Position: Sitting Diastolic blood pressure 2019-08-26 14:08:00 69 mm[Hg] Loc ation: LUE; Position: Sitting Body height 2019-08-26 14:08:00 64 [in_us] Weight 2019-08-26 14:08:00 234.1 [lb_av] Heart Rate 2019-08-26 14:08:00 72 /min Systolic blood pressure 2019-08-19 13:28:00 117 mm[Hg] Posi tion: Sitting Diastolic blood pressure 2019-08-19 13:28:00 66 mm[Hg] Pos ition: Sitting Body height 2019-08-19 13:28:00 64 [in_us] Weight 2019-08-19 13:28:00 233.4375 [lb_av] Body temperature 2019-08-19 13:28:00 98.2 [degF] Method: Tem poral Heart Rate 2019-08-19 13:28:00 83 /min BP Systolic 2019-06-10 14:01:00 99 mm[Hg] Location: DEBORAH E; Position: Sitting BP Diastolic 2019-06-10 14:01:00 56 mm[Hg] Location: DEBORAH E; Position: Sitting Heart Rate 2019-06-10 14:01:00 81 /min Location: L Brachial Artery; Height 2019-06-10 13:58:00 64 [in_us] Weight 2019-06-10 13:58:00 234.4375 [lb_av] Temperature 2019-06-10 13:58:00 98.7 [degF] Method: Temp oral Respiration Rate 2019-06-10 13:58:00 16 /min BP Systolic 2019-05-27 14:13:00 109 mm[Hg] Location: DEBORAH E; Position: Sitting BP Diastolic 2019-05-27 14:13:00 60 mm[Hg] Location: DEBORAH E; Position: Sitting Height 2019-05-27 14:13:00 64 [in_us] Weight 2019-05-27 14:13:00 235.6 [lb_av] Heart Rate 2019-05-27 14:13:00 80 /min BP Systolic 2019-04-01 14:02:00 96 mm[Hg] Location: LL E; Position: Sitting BP Diastolic 2019-04-01 14:02:00 62 mm[Hg] Location: LL E; Position: Sitting Height 2019-04-01 14:02:00 64 [in_us] Weight 2019-04-01 14:02:00 230 [lb_av] Heart Rate 2019-04-01 14:02:00 80 /min BP Systolic 2019-02-23 13:55:00 127 mm[Hg] Location: DEBORAH E; Position: Sitting BP Diastolic 2019-02-23 13:55:00 70 mm[Hg] Location: DEBORAH E; Position: Sitting Height 2019-02-23 13:55:00 64 [in_us] Weight 2019-02-23 13:55:00 230.375 [lb_av] Temperature 2019-02-23 13:55:00 97.8 [degF] Method: Temp oral Heart Rate 2019-02-23 13:55:00 74 /min Respiration Rate 2019-02-23 13:55:00 16 /min BP Systolic 2019-02-18 14:18:00 112 mm[Hg] Location: DEBORAH E; Position: Sitting BP Diastolic 2019-02-18 14:18:00 66 mm[Hg] Location: DEBORAH E; Position: Sitting Height 2019-02-18 14:18:00 64 [in_us] Weight 2019-02-18 14:18:00 234.3 [lb_av] Heart Rate 2019-02-18 14:18:00 77 /min BP Systolic 2018-11-18 15:24:00 116 mm[Hg] Location: DEBORAH E; Position: Sitting BP Diastolic 2018-11-18 15:24:00 72 mm[Hg] Location: DEBORAH E; Position: Sitting Height 2018-11-18 15:24:00 64 [in_us] Weight 2018-11-18 15:24:00 230.0 [lb_av] Heart Rate 2018-11-18 15:24:00 90 /min BP Systolic 2018-10-06 15:12:00 97 mm[Hg] Location: DEBORAH E; Position: Sitting BP Diastolic 2018-10-06 15:12:00 61 mm[Hg] Location: DEBORAH E; Position: Sitting Height 2018-10-06 15:12:00 64 [in_us] Weight 2018-10-06 15:12:00 230 [lb_av] Heart Rate 2018-10-06 15:12:00 85 /min BP Systolic 2018-10-06 08:09:00 110 mm[Hg] Location: DEBORAH E; Position: Sitting BP Diastolic 2018-10-06 08:09:00 68 mm[Hg] Location: DEBORAH E; Position: Sitting Height 2018-10-06 08:09:00 64 [in_us] Weight 2018-10-06 08:09:00 230.4375 [lb_av] Temperature 2018-10-06 08:09:00 97.8 [degF] Method: Temp oral Heart Rate 2018-10-06 08:09:00 73 /min Respiration Rate 2018-10-06 08:09:00 16 /min BP Systolic 2018-09-01 08:34:00 132 mm[Hg] Location: RU E; Position: Sitting BP Diastolic 2018-09-01 08:34:00 82 mm[Hg] Location: RU E; Position: Sitting Weight 2018-09-01 08:34:00 239.2 [lb_av] Heart Rate 2018-09-01 08:34:00 76 /min BP Systolic 2018-08-28 10:08:00 127 mm[Hg] Location: DEBORAH E; Position: Sitting BP Diastolic 2018-08-28 10:08:00 67 mm[Hg] Location: DEBORAH E; Position: Sitting Height 2018-08-28 10:08:00 64 [in_us] Weight 2018-08-28 10:08:00 239.5 [lb_av] Temperature 2018-08-28 10:08:00 98 [degF] Method: Temp oral Heart Rate 2018-08-28 10:08:00 69 /min Respiration Rate 2018-08-28 10:08:00 16 /min BP Systolic 2018-08-20 08:32:00 134 mm[Hg] Location: DEBORAH E; Position: Sitting BP Diastolic 2018-08-20 08:32:00 77 mm[Hg] Location: DEBORAH E; Position: Sitting Height 2018-08-20 08:32:00 64 [in_us] Weight 2018-08-20 08:32:00 239.8 [lb_av] Heart Rate 2018-08-20 08:32:00 69 /min BP Systolic 2018-07-22 14:19:00 134 mm[Hg] Location: DEBORAH E; Position: Sitting BP Diastolic 2018-07-22 14:19:00 70 mm[Hg] Location: DEBORAH E; Position: Sitting Height 2018-07-22 14:19:00 63 [in_us] Weight 2018-07-22 14:19:00 235.125 [lb_av] Temperature 2018-07-22 14:19:00 97.7 [degF] Method: Temp oral Heart Rate 2018-07-22 14:19:00 81 /min Location: L Brachial Artery; Respiration Rate 2018-07-22 14:19:00 16 /min Quality: No rmal Height 2018-06-20 15:02:00 63 [in_us] Weight 2018-06-20 15:02:00 238.5 [lb_av] BP Systolic 2018-05-20 10:59:00 109 mm[Hg] Location: DEBORAH E; Position: Sitting BP Diastolic 2018-05-20 10:59:00 68 mm[Hg] Location: DEBORAH E; Position: Sitting Height 2018-05-20 10:59:00 64 [in_us] Weight 2018-05-20 10:59:00 232.6 [lb_av] Heart Rate 2018-05-20 10:59:00 78 /min Respiration Rate 2018-05-20 10:59:00 16 /min BP Systolic 2018-05-20 08:20:00 132 mm[Hg] Location: DEBORAH E; Position: Sitting BP Diastolic 2018-05-20 08:20:00 78 mm[Hg] Location: DEBORAH E; Position: Sitting Height 2018-05-20 08:20:00 64 [in_us] Weight 2018-05-20 08:20:00 234 [lb_av] Temperature 2018-05-20 08:20:00 97.3 [degF] Method: Temp oral Respiration Rate 2018-05-20 08:20:00 16 /min Heart Rate 2018-05-20 08:20:00 70 /min BP Systolic 2018-02-26 09:30:00 105 mm[Hg] Location: DEBORAH E; Position: Sitting BP Diastolic 2018-02-26 09:30:00 65 mm[Hg] Location: DEBORAH E; Position: Sitting Height 2018-02-26 09:30:00 64 [in_us] Weight 2018-02-26 09:30:00 234.125 [lb_av] Temperature 2018-02-26 09:30:00 97.4 [degF] Method: Temp oral Heart Rate 2018-02-26 09:30:00 68 /min Respiration Rate 2018-02-26 09:30:00 16 /min BP Systolic 2018-02-19 14:04:00 111 mm[Hg] Location: DEBORAH E; Position: Sitting BP Diastolic 2018-02-19 14:04:00 72 mm[Hg] Location: DEBORAH E; Position: Sitting Height 2018-02-19 14:04:00 64 [in_us] Weight 2018-02-19 14:04:00 232.6 [lb_av] Heart Rate 2018-02-19 14:04:00 87 /min BP Systolic 2017-12-17 14:05:00 108 mm[Hg] Location: DEBORAH E; Position: Sitting BP Diastolic 2017-12-17 14:05:00 71 mm[Hg] Location: DEBORAH E; Position: Sitting Height 2017-12-17 14:05:00 64 [in_us] Weight 2017-12-17 14:05:00 232 [lb_av] Temperature 2017-12-17 14:05:00 97.9 [degF] Method: Temp oral Heart Rate 2017-12-17 14:05:00 89 /min Respiration Rate 2017-12-17 14:05:00 16 /min BP Systolic 2017-10-02 14:05:00 121 mm[Hg] Location: DEBORAH E; Position: Sitting BP Diastolic 2017-10-02 14:05:00 71 mm[Hg] Location: DEB[facility]AH E; Position: Sitting Height 2017-10-02 14:05:00 64 [in_us] Weight 2017-10-02 14:05:00 230.5 [lb_av] Heart Rate 2017-10-02 14:05:00 72 /min Respiration Rate 2017-10-02 14:05:00 16 /min BP Systolic 2017-08-28 13:08:00 100 mm[Hg] Location: DEBORAH E; Position: Sitting BP Diastolic 2017-08-28 13:08:00 67 mm[Hg] Location: DEBORAH E; Position: Sitting Height 2017-08-28 13:08:00 64 [in_us] Weight 2017-08-28 13:08:00 231.1875 [lb_av] Temperature 2017-08-28 13:08:00 98.1 [degF] Method: Temp oral Heart Rate 2017-08-28 13:08:00 88 /min Respiration Rate 2017-08-28 13:08:00 14 /min BP Systolic 2017-07-02 14:35:00 114 mm[Hg] Location: DEBORAH E; Position: Sitting BP Diastolic 2017-07-02 14:35:00 73 mm[Hg] Location: [facility] E; Position: Sitting Height 2017-07-02 14:35:00 64 [in_us] Weight 2017-07-02 14:35:00 230.4375 [lb_av] Heart Rate 2017-07-02 14:35:00 72 /min Respiration Rate 2017-07-02 14:35:00 16 /min BP Systolic 2017-04-30 14:21:00 112 mm[Hg] Location: DEBORAH E; Position: Sitting BP Diastolic 2017-04-30 14:21:00 75 mm[Hg] Location: DEBORAH E; Position: Sitting Height 2017-04-30 14:21:00 64 [in_us] Weight 2017-04-30 14:21:00 224 [lb_av] Heart Rate 2017-04-30 14:21:00 83 /min Respiration Rate 2017-04-30 14:21:00 16 /min BP Systolic 2017-04-17 13:12:00 120 mm[Hg] Location: DEB[facility]AH E; Position: Sitting BP Diastolic 2017-04-17 13:12:00 74 mm[Hg] Location: [facility] E; Position: Sitting Height 2017-04-17 13:12:00 64 [in_us] Weight 2017-04-17 13:12:00 223.4375 [lb_av] Heart Rate 2017-04-17 13:12:00 92 /min Respiration Rate 2017-04-17 13:12:00 16 /min Procedures and Interventions Procedure Date / Time Performed Performing Clinici an [QH] LIPID PANEL WITH REFLEX TO DIRECT LDL 2019-08-19 00:00: 00 [QLH] CMP W/EGFR 2019-08-19 00:00:00 [QLH] TSH, 3RD GENERATION W/REFLEX TO FT4 2019-08-19 00:00:0 0 [QLH] CBC (INCLUDES DIFF/PLT) 2019-08-19 00:00:00 [QLH] URINALYSIS, COMPLETE 2019-08-19 00:00:00 [QLH] BASIC METABOLIC PANEL W/EGFR 2019-05-27 00:00:00 Physical Therapy 2019-04-01 00:00:00 [QH] LIPID PANEL WITH REFLEX TO DIRECT LDL 2019-02-18 00:00: 00 [QLH] MICROALBUMIN, RANDOM URINE (W/CREATININE) 2018-11-18 0 0:00:00 [QLH] BASIC METABOLIC PANEL W/EGFR 2018-11-18 00:00:00 [U] XRAY KNEE 4 OR MORE VWS RIGHT [id number] 2018-06-20 00:00:00 MR Knee wo contrast [id number] 2018-06-20 00:00:00 [U] XRAY KNEE 4 OR MORE VWS RIGHT [id number] 2018-06-13 00:00:00 [U] XRAY KNEE 4 OR MORE VWS RIGHT [id number] 2018-06-12 00:00:00 [QLH] HEPATITIS C ANTIBODY 2018-05-20 00:00:00 XRAY Knee series [id number] 2018-05-20 00:00:00 [QLH] BASIC METABOLIC PANEL W/EGFR 2018-02-19 00:00:00 [N] JULISSA-Ankle Brachial Index Single Level [id number] 2017-12-26 0 0:00:00 [N] Arterial Duplex Lower Extremity Bilateral [id number] 00:00:00 [QLH] VITAMIN B12 2017-10-02 00:00:00 [QLH] VITAMIN D, 25-HYDROXY, LC/MS/MS 2017-10-02 00:00:00 [QLH] MICROALBUMIN, RANDOM URINE (W/CREATININE) 2017-10-02 0 0:00:00 [QH] LIPID PANEL WITH REFLEX TO DIRECT LDL 2017-08-28 00:00: 00 [QLH] CMP W/EGFR 2017-08-28 00:00:00 History of Heart surgery Plan of Care Planned Activity Planned Date Comments Encounters Start Date/Time End Date/Time Encounter Type Admission Type Att[facility] Care Department Encounter ID 2019-08-26 14:00:00 2019-08-26 14:00:00 Appointment; BARON AYALA M.D. HAWKINS, WENDY, M.D. [facility] 1 [id number] 2019-08-19 13:30:00 2019-08-19 13:30:00 Appointment; TOOTIE MARTIN M .D. BAI, KRISTY, M.D. [facility] 1 [id number] 2019-07-08 15:00:00 2019-07-08 15:00:00 Appointment; JOSELINE MENDOZA M .D. JAVED, SABA, M.D. [facility] [id number] 2019-06-10 14:00:00 2019-06-10 14:00:00 Appointment; TOOTIE MARTIN M .D. BAI, KRISTY, M.D. [facility] [id number] 2019-05-27 14:00:00 2019-05-27 14:00:00 Appointment; BARON AYALA M.D. HAWKINS, WENDY, M.D. [facility] 1 [id number] 2019-04-01 11:00:00 2019-04-01 11:00:00 Appointment; JOSELINE MENDOZA M .D. JAVED, SABA, M.D. [facility] [id number] 2019-02-23 14:00:00 2019-02-23 14:00:00 Appointment; TOOTIE MARTIN M .D. BAI, KRISTY, M.D. [facility], [facility] 1 [id number] 2019-02-18 14:00:00 2019-02-18 14:00:00 Appointment; BARON AYALA M.D. HAWKINS, WENDY, M.D. [facility] 1 [id number] 2018-11-18 15:20:00 2018-11-18 15:20:00 Appointment; BARON AYALA M.D. HAWKINS[facility] WENDY, [facility] [address] [id number] 2018-10-06 14:45:00 2018-10-06 14:45:00 Appointment; PERNELL JERONIMO M.D. GE, MICHELLE, M.D. [facility] [id number] 2018-10-06 08:00:00 2018-10-06 08:00:00 Appointment; LAMINE SAUCEDO P.A. CAMPOS, BERTHA, P.A. [facility] [id number] 2018-09-01 08:00:00 2018-09-01 08:00:00 Appointment; PERCY ORTEZ M.D. AHMED, MOUSTAFA, M.D. [facility] [id number] 2018-08-28 10:00:00 2018-08-28 10:00:00 Appointment; TOOTIE MARTIN M .D. BAI, KRISTY, M.D. [facility] [id number] 2018-08-28 10:00:00 2018-08-28 10:00:00 Appointment; TOOTIE MARTIN M .D. BAI, KRISTY, M.D. [facility] [id number] 2018-08-20 08:40:00 2018-08-20 08:40:00 Appointment; BARON AYALA M.D. HAWKINS, WENDY, M.D. [facility] [id number] 2018-07-31 07:00:00 2018-07-31 07:00:00 Appointment; ANJUM THOMPSON M.D. HUANG, EDDIE, M.D. [facility] [employer] [facility] [id number] 2018-07-22 14:00:00 2018-07-22 14:00:00 Appointment; JESSE MILIAN A PRN SAXE, KAILA, APRN [facility] [id number] 2018-07-22 06:23:00 2018-07-22 06:23:00 Registered Emergency Room 1 KRISTINA ESQUEDA [facility] [id number] 2018-07-17 11:00:00 2018-07-17 11:00:00 Appointment; ANJUM THOMPSON M.D. HUANG, EDDIE, M.D. [facility] [id number] 2018-06-20 14:00:00 2018-06-20 14:00:00 Appointment; ANJUM THOMPSON M.D. HUANG, EDDIE, M.D. [facility] [place] [id number] 2018-06-13 09:30:00 2018-06-13 09:30:00 Appointment; ANJUM THOMPSON M.D. HUANG, EDDIE, M.D. [facility] [employer] [facility] [id number] 2018-05-20 11:00:00 2018-05-20 11:00:00 Appointment; BARON AYALA M.D. HAWKINS, WENDY, M.D. [facility] [address] [id number] 2018-05-20 08:15:00 2018-05-20 08:15:00 Appointment; TRISTAN LEVINE P.A. SPOONER, JOSEPH, P.A. [facility] [id number] 2018-02-26 09:30:00 2018-02-26 09:30:00 Appointment; TOOTIE MARTIN M .D. BAI, KRISTY, M.D. [facility] [id number] 2018-02-19 13:40:00 2018-02-19 13:40:00 Appointment; BARON AYALA M.D. HAWKINS, WENDY, M.D. [facility] [address] [id number] 2018-01-28 14:20:00 2018-01-28 14:20:00 Appointment; BARON AYALA M.D. HAWKINS, WENDY, M.D. [facility] [id number] 2017-12-27 15:00:00 2017-12-27 15:00:00 [facility] [id number] 2017-12-17 14:15:00 2017-12-17 14:15:00 Appointment; MERY BANDA M.D. VAZQUEZ, NOEMI, M.D. [facility] [address] [id number] 2017-10-02 14:00:00 2017-10-02 14:00:00 Appointment; BARON AYALA M.D. HAWKINS, WENDY, M.D. [facility] [id number] 2017-08-28 13:15:00 2017-08-28 13:15:00 Appointment; TOOTIE MARTIN M .D. BAI, KRISTY, M.D. [facility] [address] [id number] 2017-07-02 14:40:00 2017-07-02 14:40:00 Appointment; BARON AYALA M.D. HAWKINS[facility] WENDY, M.D. [facility] [address] [id number] 2017-04-30 14:00:00 2017-04-30 14:00:00 Appointment; BARON AYALA M.D. HAWKINS, WENDY, M.D. [facility] [id number] 2017-04-17 13:00:00 2017-04-17 13:00:00 Appointment; BARON AYALA M.D. HAWKINS, WENDY, M.D. [facility] [id number] 2017-03-28 14:15:00 2017-03-28 14:15:00 Appointment; TOOTIE MARTIN M .D. BAI, KRISTY, M.D. [facility] [id number] 2017-01-04 12:30:00 2017-01-04 12:30:00 Appointment; TOOTIE MARTIN M .D. BAI, KRISTY, M.D. [facility] [id number] 2016-12-21 09:45:00 2016-12-21 09:45:00 Appointment; TOOTIE MARTIN M .D. BAI, KRISTY, M.D. [facility] [id number] Results Test Description Test Time Test Comments Text Results Atomic Results Result Comments [O] Hemoglobin A1c (in office) 2019-08-26 14:09:00 HEMOGLOBIN A1c (test code = 4548-4) 6.9 Glucose (Point of Care In Office)2019-08-26 14:09:00* Test Item Value Reference Range Comments Glucose POC Lifescan (test code = Glucose POC Lifescan) 145 [QH] LIPID PANEL WITH REFLEX TO DIRECT [id number] 13:54:00* Test Item Value Reference Range Comments CHOLESTEROL, TOTAL; Normal (test code = 2093-3) 176 mg/dl <200 HDL CHOLESTEROL; Normal (test code = 2085-9) 46 mg/dl > O R = 40 TRIGLYCERIDES; Normal (test code = 2571-8) 135 mg/dl <150 LDL-CHOLESTEROL; Above High Threshold (test code = 84656-1) 105 {MG/DL MARIO} Reference range: <100 Desirable range <100 mg/dL for primary prevention; <70 mg/dL for patients with CHD or diabetic patients with > or = 2 CHD risk factors. LDL-C is now calculated using the Ziyad calculation, which is a validated novel method providing better accuracy than the Friedewald equation in the estimation of LDL-C. Dylan CID et al. KALANI. 2013;310(19): 7622-5344 (http ://education.[employer]Farm/faq/SUB221) CHOL/HDLC RATIO (test code = CHOL/HDLC RATIO) 3.8 {CALC} <5 .0 NON HDL CHOLESTEROL (test code = NON HDL CHOLESTEROL) 130 {MG/DL MARIO} <130 For patients with diabetes plus 1 major ASCVD risk factor, treating to a non-HDL-C goal of <100 mg/dL (LDL-C of <70 mg/dL) is considered a therapeutic option. [[facility]] CMP [id number] 13:54:00* Test Item Value Reference Range Comments GLUCOSE; Above High Threshold (test code = 1547-9) 149 mg/dl 65-139 Non-fasting reference interval UREA NITROGEN (BUN) (test code = UREA NITROGEN (BUN)) 32 mg/dl 7-25 CREATININE (test code = CREATININE) 1.58 mg/dl 0.70-1.18 For patients >49 years of age, the reference limitfor Creatinine is approximately 13% higher for peopleidentified as -[place]. eGFR NON- (test code = eGFR NON-CARMELITA N AFGHAN) 43 {ML/MIN/1.7} > OR = 60 eGFR (test code = eGFR ) 50 {ML/MIN/1.7} > OR = 60 BUN/CREATININE RATIO (test code = BUN/CREATININE RATIO) 20 {CALC } 6-22 SODIUM (test code = SODIUM) 138 mmol/L 135-146 POTASSIUM (test code = POTASSIUM) 4.6 mmol/L 3.5-5.3 CHLORIDE (test code = CHLORIDE) 101 mmol/L 98-110 CARBON DIOXIDE (test code = CARBON DIOXIDE) 26 mmol/L 20-3 2 CALCIUM (test code = CALCIUM) 9.8 mg/dl 8.6-10.3 PROTEIN, TOTAL (test code = PROTEIN, TOTAL) 7.7 g/dl 6.1- 8.1 ALBUMIN (test code = ALBUMIN) 4.4 g/dl 3.6-5.1 GLOBULIN (test code = GLOBULIN) 3.3 {G/DL CALC} 1.9-3.7 ALBUMIN/GLOBULIN RATIO (test code = ALBUMIN/GLOBULIN RATIO) 1.3 {CALC} 1.0-2.5 BILIRUBIN, TOTAL; Normal (test code = 92789-0) 0.6 mg/dl 0 .2-1.2 ALKALINE PHSPHATASE (test code = ALKALINE PHSPHATASE) 46 u/l 35-144 AST; Normal (test code = 1916-6) 13 u/l 10-35 ALT; Normal (test code = 1742-6) 11 u/l 9-46 [QL] URINALYSIS, [id number] 13:54:00* Test Item Value Reference Range Comments COLOR; Normal (test code = 5778-6) YELLOW YELLOW APPEARANCE (test code = APPEARANCE) CLEAR CLEAR SPECIFIC GRAVITY; Normal (test code = 2965-2) 1.017 1. 001-1.035 PH; Normal (test code = 2756-5) < OR = 5.0 5.0-8.0 GLUCOSE; Abnormal (test code = 1547-9) 3+ NEGATIVE BILIRUBIN; Normal (test code = 54028-4) NEGATIVE NEGATIVE KETONES; Normal (test code = 03719-6) NEGATIVE NEGATIVE OCCULT BLOOD; Normal (test code = 70814-4) NEGATIVE NEGAT BRANDON PROTEIN; Normal (test code = 77178-3) NEGATIVE NEGATIVE NITRITE; Normal (test code = 87386-1) NEGATIVE NEGATIVE LEUKOCYTE ESTERASE (test code = LEUKOCYTE ESTERASE) NEGATIVE NEGATIVE WBC; Normal (test code = 6690-2) NONE SEEN < OR = 5 RBC; Normal (test code = 789-8) NONE SEEN < OR = 2 SQUAMOUS EPITHELIAL CELLS; Normal (test code = 16961-9) NONE SEE N < OR = 5 BACTERIA; Normal (test code = 630-4) NONE SEEN NONE SEEN HYALINE CAST; Normal (test code = 71639-0) NONE SEEN NONE SEEN [[facility]] CBC (INCLUDES DIFF/PLT)2019-08-19 13:54:00* Test Item Value Reference Range Comments WHITE BLOOD CELL COUNT (test code = WHITE BLOOD CELL COUNT) 9.6 {Thousand/u} 3.8-10.8 RED BLOOD CELL COUNT (test code = RED BLOOD CELL COUNT) 5.00 {Million/uL} 4.20-5.80 HEMAGLOBIN; Normal (test code = 78618-9) 14.9 g/dl 13.2-17 .1 HEMATOCRIT; Normal (test code = 4544-3) 44.7 % 38.5-50. 0 MCV; Normal (test code = 787-2) 89.4 fL 80.0-100.0 MCHC; Normal (test code = 22125-7) 33.3 g/dl 32.0-36.0 RDW; Normal (test code = 788-0) 11.9 % 11.0-15.0 PLATELET COUNT; Normal (test code = 777-3) 309 {Thousand/u} 140- 400 MPV; Normal (test code = 77150-0) 11.4 fL 7.5-12.5 ABSOLUTE NEUTROPHILS (test code = ABSOLUTE NEUTROPHILS) 6749 {cells/uL} 2768-6172 ABSOLUTE LYMPHOCYTES (test code = ABSOLUTE LYMPHOCYTES) 1603 {cells/uL} 850-3900 ABSOLUTE MONOCYTES (test code = ABSOLUTE MONOCYTES) 730 {cells/u L} 200-950 ABSOLUTE EOSINOPHILS (test code = ABSOLUTE EOSINOPHILS) 442 {luci ls/uL} 15-500 ABSOLUTE BASOPHILS (test code = ABSOLUTE BASOPHILS) 77 {cells/uL } 0-200 NEUTROPHILS (test code = NEUTROPHILS) 70.3 % LYMPHOCYTES (test code = LYMPHOCYTES) 16.7 % MONOCYTES; Normal (test code = 44912-3) 7.6 % EOSINOPHILS; Normal (test code = 25135-5) 4.6 % BASOPHILS; Normal (test code = 67592-2) 0.8 % [QLH] TSH, 3RD GENERATION W/REFLEX TO [id number] 13:54:00* Test Item Value Reference Range Comments TSH, 3RD GENERATION W/REFLEX TO FT4 (aldo t code = TSH, 3RD GENERATION W/REFLEX TO FT4) 3.52 {MIU/L} 0.40-4.50 [QLH] BASIC METABOLIC PANEL [id number] 14:38:01* Test Item Value Reference Range Comments Glucose Lvl; Above High Threshold (test code = 2345-7) 204 mg/dl 70-99 Adult reference range values reflect the clinical guidelinesof the [place] [employer]. Blood Urea Nitrogen; Above High Threshold (test code = 3094-0) 3 1 mg/dl 7-22 Creatinine Lvl; Above High Threshold (test code = 2160-0) 1.50 m g/dl 0.50-1.40 Sodium Level (test code = 2951-2) 140 {mEq/l} 135-145 Potassium Level (test code = 2823-3) 4.2 {mEq/l} 3.5-5.1 Chloride Level (test code = 5-0) 108 {mEq/l} 95-109 Carbon Dioxide (test code = 2027-) 24 {mEq/l} 24-32 AGAP (test code = 17242-0) 12.2 {mEq/l} 10.0-20.0 Calcium Level Total (test code = 49619-6) 8.9 mg/dl 8.5-10 .5 eGFR (test code = 78970-8) 46 {ML/MIN/1.7} The e GFR is calculated using the [...] eGFR shouldbe multiplied by the estimated BMI. Glucose (Point of Care In Office)2019-05-27 14:16:00* Test Item Value Reference Range Comments Glucose POC [facility] (test code = Glucose POC Lifescan) 196 [O] Hemoglobin A1c (in office)2019-05-27 14:14:00* Test Item Value Reference Range Comments HEMOGLOBIN A1c (test code = 4548-4) 6.4 [QH] LIPID PANEL WITH REFLEX TO DIRECT [id number] 14:43:01* Test Item Value Reference Range Comments Chol (test code = 2093-3) 182 mg/dl <=199 Trig; Above High Threshold (test code = 2571-8) 172 mg/dl <=149 HDL Cholesterol; Below Low Threshold (test code = 2085-9) 59 mg/ dl >=61 CHD Risk; Below Low Threshold (test code = 39637-9) 3.08 4.00-7.30 LDL (test code = 25751-5) 89 mg/dl <=99 VLDL (test code = VLDL) 34 [O] Hemoglobin A1c (in office)2019-02-18 14:19:00* Test Item Value Reference Range Comments HEMOGLOBIN A1c (test code = 4548-4) 6.8 Glucose (Point of Care In Office)2019-02-18 14:19:00* Test Item Value Reference Range Comments Glucose POC [facility] (test code = Glucose POC Lifes[facility]) 212 [[facility]] BASIC METABOLIC PANEL [id number] 15:57:01* Test Item Value Reference Range Comments Glucose Lvl; Above High Threshold (test code = 2345-7) 122 mg/dl 70-99 Adult reference range values reflect the clinical guidelinesof the [place] Diabetes [employer]. Blood Urea Nitrogen; Above High Threshold (test code = 3094-0) 2 4 mg/dl 7-22 Creatinine Lvl (test code = 2160-0) 1.30 mg/dl 0.50-1.40 Sodium Level (test code = 2951-2) 141 {mEq/l} 135-145 Potassium Level (test code = 2823-3) 4.5 {mEq/l} 3.5-5.1 Chloride Level (test code = 2075-0) 104 {mEq/l} 95-109 Carbon Dioxide (test code = 2027-9) 28 {mEq/l} 24-32 AGAP (test code = 77827-3) 13.5 {mEq/l} 10.0-20.0 Calcium Level Total (test code = 38485-1) 9.5 mg/dl 8.5-10 .5 eGFR (test code = 94403-1) 55 {ML/MIN/1.7} The e GFR is calculated using the [...] eGFR shouldbe multiplied by the estimated BMI. [QLH] MICROALBUMIN, RANDOM URINE (W/CREATININE)2018-11-18 15:57:01* Test Item Value Reference Range Comments Urine Microalbumin (test code = Urine Microalbumin) 10.4 mg/L No established reference range. U Creatinine (test code = 2161-8) 94.40 mg/dl No established reference range. Urine Microalbuming Creatinine Ratio (test code = 24995-7) 11.0 mg/g <=30.0 Glucose (Point of Care In Office)2018-11-18 15:25:00* Test Item Value Reference Range Comments Glucose POC Lifes[facility] (test code = Glucose POC Lifescan) 127 [O] Hemoglobin A1c (in office)2018-11-18 15:24:00* Test Item Value Reference Range Comments HEMOGLOBIN A1c (test code = 4548-4) 6.5 Negative Retinal Eye Exam (Diabetic)2018-11-11 05:00:00* Test Item Value Reference Range Comments Negative Diabetic Eye Screening (test code = Negative Diabetic Eye Screening) [id number] Glucose (Point of Care In Office)2018-08-20 08:33:00* Test Item Value Reference Range Comments Glucose POC Lifes[facility] (test code = Glucose POC Lifescan) 141 [O] Hemoglobin A1c (in office)2018-08-20 08:32:00* Test Item Value Reference Range Comments HEMOGLOBIN A1c (test code = 4548-4) 7.0 HIP LEFT 2-3 VW (+/- PELVIS)2018-07-22 07:23:00 [place] [address] Patient Name: ALVIN WHITE MR #: [id number] : 1945 Age/Sex: 73/M Req #: [id number] Adm Physician: Ordered by: KRISTINA ESQUEDA MD Report #: [id number] Location: ER Room/Bed: Procedure: [id number] DX/HIP LEFT 2-3 VW (+/- PELVIS) Exam Date: Exam Cuco e: REPORT STATUS: Signed Exam: Left hip series, 2 views. History: Left hip pain. Comparison: None. Findings: There is normal bone mineralization. No evidence of fracture, malalignment, or soft tissue abnormality. There are moderate degenerative mckeon ges of the left hip with joint space during and bony osteophyte formation. AP radiograph of the pelvis demonstrates moderate right hip, bilateral sacro iliac, lower lumbar spine, and mild pubic symphysis degenerative changes. Thad l gas partially obscures visualization of the sacrum. Impression: No acu te radiographic abnormality. Moderate bilateral hip osteoarthritis. Signed by: Dr. Se Adames MD on 07/22/2018 7:26 AM Dictated By: SE ADAMES MD 5 Transcribed B y: SAM on 07/22/18725 COPY TO: KRISTINA ESQUEDA MD [U] XRAY KNEE 4 OR MORE VWS RIGHT [id number] 14:25:00Images acquired, not reported on this accession number.Glucose (Point of Care In Office)2018-05-20 11:01:00* Test Item Value Reference Range Comments Glucose POC Lifes[facility] (test code = Glucose POC Lifescan) 134 [O] Hemoglobin A1c (in office)2018-05-20 11:00:00* Test Item Value Reference Range Comments HEMOGLOBIN A1c (test code = 4548-4) 6.8 [QLH] HEPATITIS C [id number] 09:54:00* Test Item Value Reference Range Comments Hepatitis C Antibody (test code = 29077-2) Negative XRAY Knee AP and lateral [id number] 09:15:00EXAM: XR RIGHT KNEE 2 VIEWSDATE: 05/20/2018 9:15 AM CSTINDICATION: acute pain of right kneeCOMPARISON: None.TECHNIQUE: AP and lateral radiographs of the kneeFINDINGS: No acute fracture or malalignment is identified.Mild medial compartment joint space narrowing is identified on thesenonweightbearing radiographs.No knee joint effusion is present. No soft tissue abnormality is identified.IMPRESSION: No acute abnormality.--This report was dictated by a Professor Of Archaeology/Fellow. I have personallyreviewed the images aswell as the Resident's interpretation and agree with the findings.Read by: Stefan Arango MD Resident: Stefan Arango MDDictated Date/time: 05/20/18 09:57Electronically Signed by: Esther Reinoso MD 05/20/1810:50FINAL REPORT[QLH] BASIC METABOLIC PANEL [id number] 14:34:01* Test Item Value Reference Range Comments Glucose Lvl (test code = 2345-7) 96 mg/dl 70-99 Adult reference range values reflect the clinical guidelinesof the [place] Diabetes [employer]. Blood Urea Nitrogen; Above High Threshold (test code = 3094-0) 2 4 mg/dl 7-22 Creatinine Lvl (test code = 2160-0) 1.40 mg/dl 0.50-1.40 Sodium Level (test code = 2951-2) 141 {mEq/l} 135-145 Potassium Level (test code = 2823-3) 4.2 {mEq/l} 3.5-5.1 Chloride Level (test code = 2075-0) 103 {mEq/l} 95-109 Carbon Dioxide (test code = 2027-9) 25 {mEq/l} 24-32 AGAP (test code = 55911-8) 17.2 {mEq/l} 10.0-20.0 Calcium Level Total (test code = 82796-0) 9.7 mg/dl 8.5-10 .5 eGFR (test code = 57752-4) 50 {ML/MIN/1.7} The e GFR is calculated using the [...] eGFR shouldbe multiplied by the estimated BMI. [O] Hemoglobin A1c (in office)2018-02-19 14:06:00* Test Item Value Reference Range Comments HEMOGLOBIN A1c (test code = 4548-4) 6.5 [O] Lipid Panel (In Office)2018-02-19 14:05:00* Test Item Value Reference Range Comments CHOLESTEROL, TOTAL (test code = 2093-3) 136 HDL CHOLESTEROL (test code = 2085-9) 55 TRIGLYCERIDES (test code = 2571-8) 93 LDL-CHOLESTEROL (test code = 10742-5) 63 NON HDL CHOLESTEROL (test code = NON HDL CHOLESTEROL) 81 T. Chol/HDL Ratio (test code = 9830-1) 2.5 GLUCOSE (test code = 1547-9) 107 Negative Retinal Eye Exam (Diabetic)2018-01-26 17:32:20* Test Item Value Reference Range Comments Negative Diabetic Eye Screening (test code = Negative Diabetic Eye Screening) 12/06/2017; no retinopathy; Negative Retinal Eye Exam (Diabetic)2017-11-07 05:00:00* Test Item Value Reference Range Comments Negative Diabetic Eye Screening (test code = Negative Diabetic Eye Screening) [id number] [[facility]] MICROALBUMIN, RANDOM URINE (W/CREATININE)2017-10-02 14:35:01* Test Item Value Reference Range Comments Urine Microalbumin (test code = Urine Microalbumin) <5.0 U Creatinine (test code = 2161-8) 31.90 mg/dl No established reference ranges. Urine Microalbuming Creatinine Ratio (test code = 72349-5) <15.7 <=30.0 [QL] VITAMIN [id number] 14:35:01* Test Item Value Reference Range Comments Vitamin B12 Level (test code = 2132-9) 438 pg/ml 254-1320 [QL] VITAMIN D, 25-HYDROXY, LC/[id number] 14:35:01* Test Item Value Reference Range Comments Vitamin D, 25-OH, Total (test code = Vitamin D, 25-OH, Total ) 12.4 ng/ml 30.0-100.0 Reference range is based on recommendati ons in the [employer] Clinical Practice Guideline (J Clin Endocrinol [id number];96:9907-8668) [O] Hemoglobin A1c (in office)2017-10-02 14:07:00* Test Item Value Reference Range Comments HEMOGLOBIN A1c (test code = 4548-4) 5.9 Glucose (Point of Care In Office)2017-10-02 14:06:00* Test Item Value Reference Range Comments Glucose POC Lifescan (test code = Glucose POC Lifescan) 212 [[facility]] CMP [id number] 08:53:00* Test Item Value Reference Range Comments Sodium Level (test code = 2951-2) 137 {mEq/l} 135-145 Potassium Level (test code = 2823-3) 4.3 {mEq/l} 3.5-5.1 Chloride Level (test code = 2075-0) 105 {mEq/l} 95-109 Carbon Dioxide (test code = 2027-9) 25 {mEq/l} 24-32 AGAP (test code = 78619-2) 11.3 {mEq/l} 10.0-20.0 Glucose Lvl; Above High Threshold (test code = 2345-7) 111 mg/dl 70-99 Adult reference range values reflect the clinical guidelinesof the [place] [employer]. Creatinine Lvl (test code = 2160-0) 1.10 mg/dl 0.50-1.40 Blood Urea Nitrogen; Above High Threshold (test code = 3094-0) 2 6 mg/dl 7-22 BUN/Creatinine Ratio (test code = 3097-3) 24 6-25 Total Protein (test code = 41864-2) 7.7 g/dl 6.4-8.4 Albumin Lvl (test code = 1751-7) 3.8 g/dl 3.5-5.0 Globulin (test code = 49443-6) 3.9 g/dl 2.7-4.2 A/G Ratio (test code = 1759-0) 1.0 0.7-1.6 Calcium Level Total (test code = 19413-2) 9.0 mg/dl 8.5-10 .5 ALT (test code = 1742-6) 20 u/l 0-65 AST (test code = 6316-6) 18 u/l 0-37 Bili Total (test code = 56350-3) 0.7 mg/dl 0.2-1.3 Alk Phos (test code = 1783-0) 58 u/l 39-136 eGFR (test code = 18279-8) 67 {ML/MIN/1.7} The e GFR is calculated using the [...] eGFR shouldbe multiplied by the estimated BMI. Total Protein (test code = 2885-2) 7.7 g/dl 6.4-8.4 ALT (test code = 1743-4) 20 u/l 0-65 AST (test code = 97303-7) 18 u/l 0-37 Bili Total (test code = 1975-2) 0.7 mg/dl 0.2-1.3 [[facility]] LIPID [id number] 08:53:00* Test Item Value Reference Range Comments Chol (test code = 2093-3) 156 mg/dl <=199 Trig (test code = 2571-8) 96 mg/dl <=149 HDL Cholesterol; Below Low Threshold (test code = 2085-9) 48 mg/ dl >=61 LDL (test code = 70693-9) 89 mg/dl <=99 CHD Risk; Below Low Threshold (test code = 43119-9) 3.25 4.00-7.30 VLDL (test code = VLDL) 19 [] LIPID PANEL WITH REFLEX TO DIRECT [id number] 08:10:00* Test Item Value Reference Range Comments Lipid Panel w/Direct LDL if Indicated (t est code = Lipid Panel w/Direct LDL if Indicated) Cancel Reason: Duplicate Order [QL] CMP [id number] 08:10:00* Test Item Value Reference Range Comments CMP (test code = CMP) Cancel Reason: Duplicate Order Glucose (Point of Care In Office)2017-07-02 14:37:00* Test Item Value Reference Range Comments Glucose POC Lifes[facility] (test code = Glucose POC Lifescan) 182 [O] Hemoglobin A1c (in office)2017-07-02 14:36:00* Test Item Value Reference Range Comments HEMOGLOBIN A1c (test code = 4548-4) 6.4 Glucose (Point of Care In Office)2017-04-30 14:21:00* Test Item Value Reference Range Comments Glucose POC Lifes[facility] (test code = Glucose POC Lifescan) 220 [QLH] URINALYSIS, COMPLETE W/REFLEX TO [id number] 15:14:01* Test Item Value Reference Range Comments UA Turbidity (test code = 44189-1) Clear Clear UA Spec Grav (test code = 2965-2) 1.021 <=1.030 UA pH (test code = 2756-5) 5.0 5.0-8.0 UA Protein (test code = 71340-4) Negative Negative UA Glucose; Abnormal (test code = 2349-9) 500 mg/dl Negati ve UA Ketones (test code = 07394-3) Negative Negative UA Bili (test code = 74956-7) Negative Negative UA Blood (test code = 798-9) Negative Negative UA Nitrite (test code = 40237-8) Negative Negative UA Leuk Est (test code = 43860-7) Negative Negative UA RBC (test code = 12894-1) <1 0-2 UA WBC (test code = 79476-1) <1 0-5 UA Sq Epi (test code = 22839-2) None Seen UA Color (test code = 06459-2) Ltyellow UROBILINOGEN (test code = 73859-2) <=1.0 0.1-1.0 [QL[facility]] CBC (INCLUDES DIFF/PLT)2017-04-17 15:14:01* Test Item Value Reference Range Comments WBC (test code = WBC) 9.4 {K/CMM} 3.7-10.4 RBC (test code = RBC) 4.74 {M/CMM} 4.70-6.10 Hgb (test code = 90792-3) 14.8 g/dl 14.0-18.0 Hct (test code = 4544-3) 43.7 % 42.0-54.0 MCV (test code = MCV) 92.0 fL 80.0-94.0 MCH (test code = MCH) 31.2 pg 27.0-31.0 MCHC (test code = MCHC) 33.9 g/dl 32.0-36.0 RDW (test code = RDW) 13.6 % 11.5-14.5 Platelet (test code = 777-3) 225 {K/CMM} 133-450 Mean Platelet Volume (test code = Mean Platelet Volume) 9.3 fL 7.4-10.4 [[facility]] [id number] 15:14:01* Test Item Value Reference Range Comments Segmented Neutrophils (test code = 23260-6) 65.8 % 45.0 -75.0 Monocytes # (test code = 06894-7) 0.7 {K/CMM} 0.0-0.8 Lymphocytes (test code = Lymphocytes) 24.4 % 20.0-40.0 Eosinophils # (test code = 21897-1) 0.2 {K/CMM} 0.0-0.5 Basophils # (test code = 94630-2) 0.1 {K/CMM} 0.0-0.2 Segs-Bands # (test code = 27777-7) 6.2 {K/CMM} 1.5-8.1 Lymphocytes # (test code = 30667-9) 2.3 {K/CMM} 1.0-5.5 [QL] [id number] 15:14:01* Test Item Value Reference Range Comments Amylase Level (test code = Amylase Level) 45 u/l 25-115 [[facility]] CMP [id number] 15:14:01* Test Item Value Reference Range Comments Sodium Level (test code = Sodium Level) 134 {mEq/l} 135-145 Potassium Level (test code = Potassium Level) 4.1 {mEq/l} 3. 5-5.1 Chloride Level (test code = Chloride Level) 98 {mEq/l} 95-1 09 Carbon Dioxide (test code = Carbon Dioxide) 26 {mEq/l} 24-3 2 AGAP (test code = AGAP) 14.1 {mEq/l} 10.0-20.0 Glucose Lvl (test code = Glucose Lvl) 331 mg/dl 70-99 Adult reference range values reflect the clinical guidelinesof the [place] [employer]. Creatinine Lvl (test code = Creatinine Lvl) 1.30 mg/dl 0.50 -1.40 Blood Urea Nitrogen (test code = Blood Urea Nitrogen) 21 mg/dl 7-22 BUN/Creatinine Ratio (test code = BUN/Creatinine Ratio) 16 6-25 Total Protein (test code = 28933-7) 8.4 g/dl 6.4-8.4 Albumin Lvl (test code = 1751-7) 3.9 g/dl 3.5-5.0 Globulin (test code = Globulin) 4.5 g/dl 2.7-4.2 A/G Ratio (test code = A/G Ratio) 0.9 0.7-1.6 Calcium Level Total (test code = Calcium Level Total) 9.7 mg/dl 8.5-10.5 ALT (test code = 1742-6) 29 u/l 0-65 AST (test code = 1916-6) 17 u/l 0-37 Bili Total (test code = 90284-6) 0.5 mg/dl 0.2-1.3 Alk Phos (test code = 1783-0) 69 u/l 39-136 eGFR (test code = eGFR) 55 {ML/MIN/1.7} The eGFR is calculated using the CKD- EPI formula. In most young, healthyindividuals the eGFR [...] eGFR shouldbe multiplied by the estimated BMI. [[facility]] [id number] 15:14:01* Test Item Value Reference Range Comments Lipase Level (test code = Lipase Level) 259 u/l 73-393 [QLH] TSH, 3RD GENERATION W/REFLEX TO [id number] 15:14:01* Test Item Value Reference Range Comments TSH (test code = 26529-6) 1.920 {uIU/ml} 0.360-3.740 [O] Hemoglobin A1c (in office)2017-04-17 13:14:00* Test Item Value Reference Range Comments HEMOGLOBIN A1c (test code = 4548-4) 10.2 Glucose (Point of Care In Office)2017-04-17 13:14:00* Test Item Value Reference Range Comments Glucose POC Lifescan (test code = Glucose POC Lifescan) 349
--- OUTSIDE RECORDS SUMMARY | 2019-11-05 06:21 | XMS REPORT | Continuity of Care Document ---
Author Author GameyolaALVIN Organization [employer] Address Unknown Phone Unavailable Care Team Providers Care Composite Laminator Name Role Phone [employer] Unavailable Un available Problems Problem Status Onset Date Classification Date Reported Comments Source Pain in right knee 08/19/2018 02/04/2019 [facility], P[facility]RO [facility] Juanor e UNK Active 0 07/17/2018 [facility] Unspecified internal derangement of right knee 07/08/2018 01/21/2019 [facility] Mike M23.91 - UNSPECIFIED INTERNAL DERANGEME Active 06/26/2018 [facility] Mike M25.561 - PAIN IN RIGHT KNEE A ctive 05/20/2018 [facility] Transient synovitis, right knee 02/04/2019 [facility] Loose body in knee, right knee 02/04/2019 [facility] Chondromalacia, right knee 02/04/2019 [facility] Type 2 diabetes mellitus without complications 02/04/2019 [facility] Essential (primary) hypertension 02/04/2019 [facility] Atherosclerotic heart disease of [place] coronary artery without angina pectoris 02/04/2019 [facility] Old myocardial infarction 02/04/2019 [facility] Personal history of transient ischemic a ttack (TIA), and cerebral infarction without residual deficits 02/04/2019 [facility] Personal history of other venous thrombo sis and embolism 02/04/2019 [facility] residential (current) use of aspirin 02/04/2019 [facility] Other retirement (current) drug therapy 02/04/2019 [facility] residential (current) use of antithromboti cs/antiplatelets 02/04/2019 [facility] Presence of aortocoronary bypass graft 02/04/2019 [facility] Cerebrovascular accident (disorder) Resolved Problem 12/2018 [facility] [facility], [facility] [place] Diabetes mellitus (disorder) A ctive Problem 12/2018 [facility] [place], [place] Gastroesophageal reflux disease (disorder) Active Problem 02/04/2019 [facility] Hypercholesterolemia (disorder) Active Problem 12/2018 [facility] Hypertensive disorder, systemic arterial (disorder) Active Problem 02/04/2019 GRISRiana Sama,[facility] Myocardial infarction (disorder) Resolved Problem 12/2018 [facility] Mike[facility] Effusion, right knee 01/21/2019 [place] [facility] Synovitis and tenosynovitis, unspecified 01/21/2019 [facility] Mike Medications Medication Details Route Status Patient Instructions Ordering Provider Order Date Source Tricor 145 mg, PO, Daily, 0 Re fill(s) Active 07/18/2018 [facility] 1.5 ML Insulin Glargine 300 UNT/ML Prefi lled Syringe [Toujeo] SUB-Q, Daily, 0 Refill(s) Active 07/18/2018 [facility] Esomeprazole 40 MG Enteric Coated Capsule 40 mg = 1 cap, PO, Daily, 0 Refill(s) Active 07/18/2018 [facility] clopidogrel 75 mg oral tablet 75 mg = 1 tab, PO, Daily, 0 Refill(s) Active 07/18/2018 [facility] atorvastatin 80 MG Oral Tablet [Lipitor] 80 mg = 1 tab, PO, Daily, 0 Refill(s) Active 07/18/2018 [facility] benazepril 10 mg oral tablet 1 0 mg = 1 tab, PO, Daily, 0 Refill(s) Active 07/18/2018 [facility] gabapentin 600 MG Oral Tablet 600 mg = 1 tab, PO, BID, 0 Refill(s) Active 07/18/2018 [facility] Aspirin 325 MG Oral Tablet 325 mg = 1 tab, PO, Daily, 0 Refill(s) Active 07/18/2018 [facility] Furosemide 40 MG Oral Tablet 4 0 mg = 1 tab, PO, Daily, 0 Refill(s) Active 07/18/2018 [facility] canagliflozin 100 MG Oral Tablet [Invokana] 100 mg = 1 tab, PO, Before Breakfast, # 30 tab, 0 Refill(s) Active 07/18/2018 [facility] isosorbide mononitrate 20 mg oral tablet 20 mg = 1 tab, PO, BID, # 60 tab, 0 Refill(s) Active 07/18/2018 [facility] sitagliptin 100 MG Oral Tablet [Januvia] 100 mg = 1 tab, PO, Daily, 0 Refill(s) Active 07/18/2018 [facility] Allergies, Adverse Reactions, Alerts Substance Category Reaction Severity Reaction type Status Date Reported Comments Source metFORMIN Assertion Drug allergy Active [facility] Immunizations No Data Provided for This Section Results Order Name Results Value Reference Range Date Interpretation Comments Source BLOOD BANK RESULTS Antibody Scrn Positive 2 (07/18/18 11:01 AM) 07/18/2018 Result Comment: 07/18/2018 1 2:26 [id number]
"Significant Findings called to Shante Edmonds at 07/18/2018 12:25 by CHILDERS. Read Back OK." [facility] BLOOD BANK RESULTS ABO/Rh A POS 07/18/2018 [facility] BLOOD BANK RESULTS AB Int Anti-K 07/18/2018 [facility] ELECTROLYTES AGAP 13.2 10.0 - 20.0 07/18/2018 [facility] ELECTROLYTES eGFR 63 07/18/2018 Result Comment: The eGFR is calculated using the CKD-EPI formula. In most young, healthy individuals the eGFR will be >90 mL/min/1.73m2. The eGFR declines with age. An eGFR of 60-89 may be normal in some populations, particularly the elderly, for whom the CKD-EPI formula has not been extensively validated. Use of the eGFR is not recommended in the following populations:

Individuals with unstable creatinine concentrations, including patients and those with serious co-morbid conditions.

Patients with extremes in muscle mass or diet.

The data above are obtained from the National Kidney Disease Education Program (NKDEP) which additionally recommends that when the eGFR is used in patients with extremes of body mass index for purposes of drug dosing, the eGFR should be multiplied by the estimated BMI. [facility] ELECTROLYTES Potassium Lvl 4.2 3.5 - 5.1 07/18/2018 [facility] ELECTROLYTES Chloride Lvl 106 95 - 109 07/18/2018 [facility] ELECTROLYTES Calcium Lvl 8.8 8.5 - 10.5 07/18/2018 [facility] ELECTROLYTES CO2 26 24 - 32 07/18/2018 [facility] ELECTROLYTES Sodium Lvl 141 135 - 145 07/18/2018 [facility] ELECTROLYTES Creatinine Lvl 1.1 5 0.50 - 1.40 07/18/2018 [place] ELECTROLYTES BUN 26 7 - 22 07/18/2018 [facility] ELECTROLYTES Glucose Lvl 116 70 - 99 07/18/2018 [facility] HEMATOLOGY Eosinophils # 0.2 0.0 - 0.5 07/18/2018 [facility] HEMATOLOGY Monocytes # 0.4 0.0 - 0.8 07/18/2018 [facility] HEMATOLOGY Lymphocytes # 1.4 1.0 - 5.5 07/18/2018 [facility] HEMATOLOGY Neutrophils # 5.0 1.5 - 8.1 07/18/2018 [facility] HEMATOLOGY Basophils 0.5 0.0 - 1.0 07/18/2018 [facility] HEMATOLOGY Monocytes 5.7 2.0 - 12.0 07/18/2018 [facility] HEMATOLOGY Eosinophils 2.9 0.0 - 4.0 07/18/2018 [facility] HEMATOLOGY Segs 71.2 45.0 - 75.0 07/18/2018 [facility] HEMATOLOGY Lymphocytes 19.7 20.0 - 40.0 07/18/2018 [facility] HEMATOLOGY INR 1.01 0.85 - 1.17 07/18/2018 [facility] HEMATOLOGY PT 13.1 12.0 - 14.7 07/18/2018 [facility] HEMATOLOGY PTT 36.8 22.9 - 35.8 07/18/2018 [facility] MCHC 33.3 32.0 - 36.0 07/18/2018 [facility] HEMATOLOGY RDW 13.8 11.5 - 14.5 07/18/2018 [facility] HEMATOLOGY MPV 9.6 7.4 - 10.4 07/18/2018 [facility] HEMATOLOGY Platelet 194 133 - 450 07/18/2018 [facility] HEMATOLOGY RBC 5.09 4.70 - 6.10 07/18/2018 [facility] HEMATOLOGY WBC 7.1 3.7 - 10.4 07/18/2018 [facility] HEMATOLOGY Hct 46.9 42.0 - 54.0 07/18/2018 [facility] HEMATOLOGY MCV 92.1 80.0 - 94.0 07/18/2018 [facility] HEMATOLOGY MCH 30.7 27.0 - 31.0 07/18/2018 [facility] HEMATOLOGY Hgb 15.6 14.0 - 18.0 07/18/2018 [facility] SPECIAL CHEMISTRY Hgb A1C 7.2 <=5.6 % 07/18/2018 [facility] URINE AND STOOL UA Ketones Negative *NA* (07/18/18 11:01 AM) Negative 07/18/2018 [facility] URINE AND STOOL UA Bili Negative *NA* (07/18/18 11:01 AM) Negative 07/18/2018 [facility] URINE AND STOOL UA Blood Negative (07/18/18 11:01 AM) Negative 07/18/2018 [facility] URINE AND STOOL UA Glucose 500 mg/dL Negative mg/dL 07/18/2018 [facility] URINE AND STOOL UA Sq Epi Occasional /LPF Few /LPF 07/18/2018 [facility] URINE AND STOOL UA WBC <1 0 - 5 07/18/2018 [facility] URINE AND STOOL UA RBC <1 0 - 2 07/18/2018 [facility] URINE AND STOOL UA Urobilinogen <=1.0 mg/dL 0.1 - 1.0 07/18/2018 [facility] URINE AND STOOL UA Nitrite Negative (07/18/18 11:01 AM) Negative 07/18/2018 [facility] URINE AND STOOL UA Leuk Est Negative (07/18/18 11:01 AM) Negative 07/18/2018 [facility] URINE AND STOOL UA Spec Grav 1.015 <=1.030 07/18/2018 [facility] URINE AND STOOL UA Turbidity Clear (07/18/18 11:01 AM) Clear 07/18/2018 [facility] URINE AND STOOL UA Color Ltyellow 07/18/2018 [facility] URINE AND STOOL UA Protein Negative (07/18/18 11:01 AM) Negative 07/18/2018 [facility] URINE AND STOOL UA pH 5.0 5.0 - 8.0 07/18/2018 [facility] Pathology Reports No Data Provided for This Section Diagnostic Reports Report Value Date Source Chest 2 views DX Clinical Giovanna cation: Coughing - preop exam Comparison: None FINDINGS: [...] radiographic evidence of acute cardiopulmonary disease. SL: [id number] 07/18/2018 [facility] Knee wo contrast MRI EXAMINATI ON: MRI of the right knee without contrast HISTORY: M23.91 Unspecified internal derangement of right knee; anterior and medial right knee pain x 2 months; right knee medial compartment chondrosis COMPARISON: Radiographs dated 05/20/2018 are reviewed. TECHNIQUE: Multiplanar, multisequence magnetic resonance imaging of the right knee is performed with an extremity coil without contrast. FINDINGS: Menisci: --Medial: The anterior horn, body, and p osterior horn are intact. --Lateral: The anterior horn, [...] cyst. IMPRESSION: 1. Moderate medial and mild patellofemor al compartment, bicompartmental chondrosis of the right knee as described in detail above, most severe along the anterior to central weightbearing aspect of the medial compartment with underlying foci of subchondral edema. 2. Small to moderate-sized right knee ef fusion with mild scattered synovitis. There is also a 12 x 3 mm cartilaginous loose body along the lateral aspect of the intercondylar notch. 3. Mild distal right patellar tendinosis without tendon tear. 4. Nonspecific, mild, ill-defined subcor tical marrow edema within the central aspect of the proximal tibia without acute fracture. 5. Intact right knee menisci, cruciate l igaments, and collateral ligaments. 07/03/2018 [facility] Mike Knee 1-2 Views unilateral DX E XAM: XR RIGHT KNEE 2 VIEWS DATE: 05/20/2018 9:15 AM DIRECTOR OF INTERCOLLEGIATE ATHLETICS INDICATION: acute pain of right knee COMPARISON: None. TECHNIQUE: AP and lateral radiographs of the knee FINDINGS: No acute fracture or malalignment is identified. Mild medial compartment joint space narrowing is identified on these nonweightbearing radiographs. No knee joint effusion is present. No soft tissue abnormality is identified. IMPRESSION: No acute abnormality. 05/20/2018 [facility] Consultation Notes No Data Provided for This Section Discharge Summaries No Data Provided for This Section History and Physicals No Data Provided for This Section Vital Signs Vital Sign Value Date Comments Source Heart Rate 75 07/18/2018 [facility] Respitory Rate 16 07/18/2018 [facility] Systolic (mm Hg) 116 07/18/2018 [facility] Diastolic (mm Hg) 80 07/18/2018 [facility] Temperature Oral (F) 97.3 F 07/18/2018 [facility] Height 162.56 cm 07/18/2018 [facility] BMI Calculated 40.77 07/18/2018 [facility] Weight 107.727 07/18/2018 [facility] Encounters Location Location Details Encounter Type Encounter Number Reason For Visit Attending Provider ADM Date DC Date Status Source [facility] [id number] Wily Adam 05/20/2018 [facility]/21/[facility] [id number] [facility] Wilfredo Douglas 07/03/2018 [facility]/04[facility] [place] [facility] [id number] Wilfredo Douglas 07/18/2018 07/18/2018 [facility] Procedures Procedure Code Date Perfomer Comments Source CABG x 2 - Coronary artery bypass grafts x 2 [id number] 05/02/2007 TOMASZ Devi [facility] [id number] [facility] Assessment and Plan Assessment and Plan Date Source Extracted from:Title: Clinical Document Author: Wilfredo Douglas MD Date: 07/27/18 CHIEF COMPLAINT: Right knee pain. HISTORY OF PRESENT ILLNESS: The patient is a 73-year-old male with isolated right knee pain. It has been going on for the past 2 months. The pain mostly in the medial aspect of the knee, 5/10 severity pain, chronic, related to overuse, relieved by rest, aggravated by twisting, pivoting, squatting, walking, prolonged ambulation, and going up and down stairs, intermittent popping and locking sensation. PAST MEDICAL HISTORY: Significant for blood clots, diabetes, hypertension, coronary artery disease, heart attack, and stroke. ALLERGIES: ADVERSE REACTIONS TO METFORMIN. PAST SURGICAL HISTORY: Includes coronary artery bypass stent. MEDICATIONS: Januvia, isosorbide, Invokana, furosemide, Xu Aspirin, gabapentin, benazepril, Lipitor, TriCor, Plavix, and esomeprazole. SOCIAL HISTORY: Denies smoking or drug use. Admits to social alcohol use. FAMILY HISTORY: Denies. REVIEW OF SYSTEMS: My 12-system review of systems questionnaire was completed and reviewed by myself. Systems evaluated include general, skin, HEENT, pulmonary, genitourinary, gastrointestinal, musculoskeletal, lymphatics, endocrine, cardiovascular, and neurologic. Pertinent positive musculoskeletal. Please see HPI for further details. PHYSICAL EXAMINATION: GENERAL: The patient demonstrates normal body habitus, in no acute distress. PSYCHIATRIC: Alert and oriented x3. Demonstrates proper mood and affect. ABDOMEN: Soft, nontender, and nondistended. EYES: Sclerae are normal. SKIN: No evidence of soft tissue swelling, ecchymosis, or bruising. CARDIOVASCULAR: 1+ DP pulses bilaterally. NEUROLOGIC: Intact bilateral hips, quads, hamstrings, TA, EHL, and GS. Light touch is intact in L2 through S1 dermatomal distributions. 1+ DTRs bilaterally. EXTREMITIES: The patient's right knee demonstrates tenderness to posterior medial aspect of knee. Positive Warren sign. Range of motion was 0 to 120 degrees, 5-degree alignment, trace varus-valgus laxity. X-RAYS: Right knee series demonstrates no evidence of fracture, dislocation, or arthritic disease. IMAGING: MRI, the patient's right knee MRI results demonstrates intra-articular loose body as well as evidence of chondromalacia in medial compartment and synovitis along the knee joint. ASSESSMENT: The patient has right knee synovitis, ICD-10 code is M67.361, right knee loose body M23.41, and right knee chondromalacia M94.261. The patient is also diabetic, E11.9. PLAN: At this point, I believe the patient will require surgical intervention secondary to intra-articular loose body and to prevent further. Surgical plan, right knee arthroscopy, removal of loose body, chondroplasty and synovectomy. Risks and benefits discussed at length with the patient at length, risks of surgery, bleeding, pain, infection, damage to nearby structures, vessels, tendons, nerves, possible need for further surgery, possible blood clots in legs or lungs, stroke, heart attack, and . The patient is a diabetic. We will use a 10 mg of Kenalog postoperatively. We will plan on using Bactrim for antibiotics for one week, postoperative. Aspirin for DVT prophylaxis. 07/18/2018 [facility] Plan of Care No Data Provided for This Section Social History Social History Date Source Social History TypeResponse Substance Abuse Use: Current. Type: Marijuana. Recreational Drug Route: Inhaled. Alcohol Current, Type Beer.1 Smoking Status Never smoker; Exposure to Tobacco Smoke None; Cigarette Smoking Last 365 Days No; Reg Smoking Cessation Counseling No entered on: 07/18/18 1socially 07/18/2018 [facility] Social History TypeResponse Substance Abuse Use: Current. Type: Marijuana. Recreational Drug Route: Inhaled. Alcohol Current, Type Beer.1 Smoking Status Never smoker; Exposure to Tobacco Smoke None; Cigarette Smoking Last 365 Days No; Reg Smoking Cessation Counseling No entered on: 07/18/18 1socially 07/18/2018 [facility] [place] Social History TypeResponse Substance Abuse Use: Current. Type: Marijuana. Recreational Drug Route: Inhaled. Alcohol Current, Type Beer.1 Smoking Status Never smoker; Exposure to Tobacco Smoke None; Cigarette Smoking Last 365 Days No; Reg Smoking Cessation Counseling No entered on: 07/18/18 1socially 07/18/2018 [facility] Family History No Data Provided for This Section Advance Directives No Data Provided for This Section Functional Status No Data Provided for This Section
--- OUTSIDE RECORDS SUMMARY | 2019-11-05 06:21 | XMS REPORT | Summary of Care ---
Author ALVIN Emerson M.D. Organization Unknown Address Unknown Phone Unavailable Care Team Providers Care Computer Systems Manager Name Role Phone VERONICA Pelletier, TOOTIE Unavailable Unavailable KELLY Pelletier, JOSELINE Unavailable Unavailable ABNER P.A., CARLO Unavailable Unavailable LUCY Pelletier, BARON Unavailable Unavailable VERONICA RAND MS, TOOTIE Dhillon Unavailable Unavailable KELLY RAND, JOSELINE Unavailable Unavailable JAY RAND MS, ANJUM Viera Unavailable Unavailable MAICOL PENDLETONP, JESSE Unavailable Unavailable LUCY RAND MS, BARON PHIPPS Unavailable Unavaildavid ORTEZ MD, MOUSTAFA Unavailable Unavailable GISELE RAND MS, JENNIFER BANERJEE Unavailable Unavailable Unavailable Unavailable Functional [...] directed * Quantity: 1 Refills: 0 ABNER Fritz.CARLO Woodall * Start : 20-May-2018 Active Tdap (Adacel) Inject at pharmacy as directed * Quantity: 1 Refills: 0 ABNER P.ACARLO Stiles * Start : 20-May-2018 Active 0.5 ML Syringe Cyclobenzaprine HCl - 5 MG Oral Tablet TAKE 1 TABLET 3 TIMES DAILY NEEDED. * Quantity: 90 Refills: 2 KELLY Pelletier JOSELINE * Start : 01-Apr-2019 Active Allergies [...] high dose seasonal, preservat hayden-free Lot #: [id number] on: 12-Apr-2017 Influenza, high dose seasonal, preservat hayden-free Lot #: [id number] on: 11-Mar-2018 Fluzone High-Dose 0.5 ML Intramuscular S uspension Prefilled Syringe on: 01-Mar-2019 Influenza on: Mar-2019 Influenza, high dose seasonal, preservat hayden-free Lot #: [id number] on: 13-Mar-2019 Prevnar 13 Intramuscular Suspension Lot #: [id number] on: 10-Jun-2019 Family History Name Dates Details [...] Problem not documented On: 17-Dec-2017 14:15 [facility]ointment; [facility] Encounter Diagnosis: Problem not documented On: [...]
--- OUTSIDE RECORDS SUMMARY | 2019-11-05 06:21 | XMS REPORT | Summary of Care ---
Author Author ALVIN Casarez R.N. Organization Unknown Address Unknown Phone Unavailable Care Team Providers Care Curb Machine Operator Name Role Phone VERONICA Pelletier, TOOTIE Unavailable Unavailable KELLY Pelletier, JOSELINE Unavailable Unavailable ABNER P.A., CARLO Unavailable Unavailable LUCY Pelletier, BARON Unavailable Unavailable VERONICA RAND [place], TOOTIE Dhillon Unavailable Unavailable KELLY RAND, JOSELINE Unavailable Unavailable JAY RAND [place], ANJUM Viera Unavailable Unavailable MAICOL PENDLETONP, JESSE Unavailable Unavailable LUCY RAND [place], BARON PHIPPS Unavailable Unavaildavid ORTEZ MD, MOUSTAFA Unavailable Unavailable GISELE RAND [place], JENNIFER BANERJEE Unavailable Unavailable Unavailable Unavailable Functional [...] high dose seasonal, preservat hayden-free Lot #: [id number] on: 12-Apr-2017 Influenza, high dose seasonal, preservat hayden-free Lot #: [id number] on: 11-Mar-2018 Fluzone High-Dose 0.5 ML Intramuscular S uspension Prefilled Syringe on: 01-Mar-2019 Influenza on: Mar-2019 Influenza, high dose seasonal, preservat hayden-free Lot #: [id number] on: 13-Mar-2019 Prevnar 13 Intramuscular Suspension Lot #: [id number] on: 10-Jun-2019 Family History Name Dates Details [...] On: 26-Aug-2019 14:00 Interventions Provided Medication Changes* BD Pen Needle Mini U/F 31G X 5 MM - Renew Instructions Name Dates Details Instructions [...]
--- OUTSIDE RECORDS SUMMARY | 2019-11-05 06:22 | XMS REPORT | Summary of Care ---
Author ALVIN Emerson M.D. Organization Unknown Address Unknown Phone Unavailable Care Team Providers Care Manager Target Name Role Phone VERONICA Pelletier, TOOTIE Unavailable Unavailable KELLY Pelletier, JOSELINE Unavailable Unavailable ABNER P.A., CARLO Unavailable Unavailable LUCY Pelletier, BARON Unavailable Unavailable VERONICA RAND [place], TOOTIE Dhillon Unavailable Unavailable KELLY RAND, JOSELINE Unavailable Unavailable JAY RAND [place], ANJUM Viera Unavailable Unavailable MAICOL PENDLETONP, JESSE Unavailable Unavailable LUCY RAND [place], BARON PHIPPS Unavailable Unavaildavid ORTEZ MD, MOUSTAFA Unavailable Unavailable GISELE RAND [place], JENNIFER BANERJEE Unavailable Unavailable Unavailable Unavailable Functional [...] kg/sq m (V85.39, Z68 .39) Status: Active Allergic dermatitis (692.9, L23.9) Status: Active Myofascial pain syndrome (729.1, M79.18) Status: Active Lumbar spondylosis (721.3, M47.816) Status: Active Diabetes with neurologic complications ( 250.60, E11.49) Status: Active 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, 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) Status: Active Peripheral neuropathy (356.9, G62.9) Status: Active Medicare annual wellness visit, subseque nt (V70.0, Z00.00) Status: Active Depression screen (V79.0, Z13.31) Status: Active Advance care planning (V65.49, Z71.89) Status: Active Encounter for mini-mental status examina tion Status: Active At moderate risk for fall (V15.88, Z91.8 1) Status: Active Need for vaccination with 13-polyvalent pneumococcal conjugate vaccine (V03.82, Z23) Status: Active Essential hypertension, benign (401.1, I 10) Status: Active GERD without esophagitis (530.81, K21.9) Status: Active Controlled type 2 diabetes mellitus with diabetic neuropathy, without long-term current use of insulin (250.60, E11.40) Status: Active Mixed hyperlipidemia (272.2, E78.2) Status: Active Medications Name Dates Details Atorvastatin [...] MENDOZA M.D. * Start : 01-Apr-2019 Active Rich SoloStar 300 UNIT/ML Subcutaneous Solution Pen-injector INJECT 33 UNITS SUBCUTANEOUSLY AT BEDTIME TITRATE TO GOAL DIRECTED * Quantity: 3 Refills: 0 BARON AYALA M.D. Start : 10-Aug-2019 Active 3 x 1.5 ML Pen Allergies and Adverse Reactions Name Dates Details metFORMIN HCl TABS (Allergy) Status: Act brandon Past Medical History Name Dates Details History [...] on: 31-Mar-2016 Influenza, high dose seasonal, preservat brandon-free Lot #: [id number] on: 12-Apr-2017 Influenza, high dose seasonal, preservat brandon-free Lot #: [id number] on: 11-Mar-2018 Fluzone High-Dose 0.5 ML Intramuscular S uspension Prefilled Syringe on: 01-Mar-2019 Influenza on: Mar-2019 Influenza, high dose seasonal, preservat brandon-free Lot #: [id number] on: 13-Mar-2019 Prevnar 13 Intramuscular Suspension Lot #: [id number] on: 10-Jun-2019 Family History Name Dates Details Family history unknown (V49.89, Z78.9) Status: Active Name Dates Details Family history unknown (V49.89, Z78.9) Status: Active Social History Name Dates Details - Status: Name Dates Details Never smoked tobacco (finding) Vital Signs Date Test Result Details [id number]:08 Systolic blood pressure 112 mm[Hg] Status: Comments : Location: LUE; Position: Sitting Diastolic blood pressure 69 mm[Hg] Status: Comment s: Location: LUE; Position: Sitting Body height 64 in Status: Weight 234.1 lb Status: Body mass index (BMI) [Ratio] 40.18 kg/m2 Status: Body surface area Derived from formula 2.09 m2 S tatus: Heart Rate 72 /min Status: :28 Systolic blood pressure 117 mm[Hg] Status: Comments : Position: Sitting Diastolic blood pressure 66 mm[Hg] Status: Comment s: Position: Sitting Body height 64 in Status: Weight 233.4375 lb Status: Body mass index (BMI) [Ratio] 40.07 kg/m2 Status: Body surface area Derived from formula 2.09 m2 S tatus: Heart Rate 83 /min Status: Body temperature 98.2 f Status: Comments: Me thod: Temporal Results Date Description Value Details :54 [QH] LIPID PANEL WITH REFLEX TO DIRECT L DL CHOLESTEROL, TOTAL 176 mg/dl (Normal) Range: <2 00 HDL CHOLESTEROL 46 mg/dl (Normal) Range: > OR = 40 TRIGLYCERIDES 135 mg/dl (Normal) Range: <150 LDL-CHOLESTEROL 105 {MG/DL__CAL} (Above high th reshold) Comments: Reference range: <100 Desirable range <100 mg/dL for primary prevention; <70 mg/dL for patients with CHD or diabetic patients with > or = 2 CHD risk factors. LDL-C is now calculated using the Ziyad calculation, which is a validated novel method providing better accuracy than the Friedewald equation in the estimation of LDL-C. Dylan SS et al. KALANI. 2013;310(19): 2969-6787 (http ://education.ddmap.com.Chomp/faq/DJA425) CHOL/HDLC RATIO 3.8 {CALC} (Normal) Range: <5.0 NON HDL CHOLESTEROL 130 {MG/DL__CAL} (Above hig h threshold) Range: <130 Comments: For patients with diabetes plus 1 major ASCVD risk factor, treating to a non-HDL-C goal of <100 mg/dL (LDL-C of <70 mg/dL) is considered a therapeutic option. :54 [QLH] CMP W/EGFR GLUCOSE 149 mg/dl (Above high threshold ) Range: 65-139 Comments: Non-fasting reference interval UREA NITROGEN (BUN) 32 mg/dl (Above high thresh old) Range: 7-25 CREATININE 1.58 mg/dl (Above high threshol d) Range: 0.70-1.18 Comments: For patients >49 years of age, the reference limitfor Creatinine is approximately 13% higher for peopleidentified as -Greek. eGFR NON- 43 {ML/MIN/1.7} (Belo w low threshold) Range: > OR = 60 eGFR 50 {ML/MIN/1.7} (Below lo w threshold) Range: > OR = 60 BUN/CREATININE RATIO 20 {CALC} (Normal) Range: 6-22 SODIUM 138 mmol/L (Normal) Range: 135- 146 POTASSIUM 4.6 mmol/L (Normal) Range: 3.5- 5.3 CHLORIDE 101 mmol/L (Normal) Range: 98-1 10 CARBON DIOXIDE 26 mmol/L (Normal) Range: 20-32 CALCIUM 9.8 mg/dl (Normal) Range: 8.6-1 0.3 PROTEIN, TOTAL 7.7 g/dl (Normal) Range: 6.1-8. 1 ALBUMIN 4.4 g/dl (Normal) Range: 3.6-5. 1 GLOBULIN 3.3 {G/DL__CALC} (Normal) Range : 1.9-3.7 ALBUMIN/GLOBULIN RATIO 1.3 {CALC} (Normal) Rang e: 1.0-2.5 BILIRUBIN, TOTAL 0.6 mg/dl (Normal) Range: 0.2- 1.2 ALKALINE PHSPHATASE 46 u/l (Normal) Range: 35-1 44 AST 13 u/l (Normal) Range: 10-35 ALT 11 u/l (Normal) Range: 9-46 [id number]-[id number]:54 [[facility]] URINALYSIS, COMPLETE COLOR YELLOW (Normal) Range: YELLOW APPEARANCE CLEAR (Normal) Range: CLEAR SPECIFIC GRAVITY 1.017 (Normal) Range: 1.001-1 .035 PH < OR = 5.0 (Normal) Range: 5.0 -8.0 GLUCOSE 3+ (Abnormal) Range: NEGATIVE BILIRUBIN NEGATIVE (Normal) Range: NEGAT BRANDON KETONES NEGATIVE (Normal) Range: NEGAT BRANDON OCCULT BLOOD NEGATIVE (Normal) Range: NEGAT BRANDON PROTEIN NEGATIVE (Normal) Range: NEGAT BRANDON NITRITE NEGATIVE (Normal) Range: NEGAT BRANDON LEUKOCYTE ESTERASE NEGATIVE (Normal) Range: NE GATIVE WBC NONE SEEN {/HPF} (Normal) Range : < OR = 5 RBC NONE SEEN {/HPF} (Normal) Range : < OR = 2 SQUAMOUS EPITHELIAL CELLS NONE SEEN {/HPF} (Nor mal) Range: < OR = 5 BACTERIA NONE SEEN {/HPF} (Normal) Range : NONE SEEN HYALINE CAST NONE SEEN {/LPF} (Normal) Range : NONE SEEN :54 [QLH] CBC (INCLUDES DIFF/PLT) WHITE BLOOD CELL COUNT 9.6 {Thousand/u} (Normal ) Range: 3.8-10.8 RED BLOOD CELL COUNT 5.00 {Million/uL} (Normal) Range: 4.20-5.80 HEMAGLOBIN 14.9 g/dl (Normal) Range: 13.2- 17.1 HEMATOCRIT 44.7 % (Normal) Range: 38.5-50. 0 MCV 89.4 fL (Normal) Range: 80.0-10 0.0 MCH 29.8 pg (Normal) Range: 27.0-33 .0 MCHC 33.3 g/dl (Normal) Range: 32.0- 36.0 RDW 11.9 % (Normal) Range: 11.0-15. 0 PLATELET COUNT 309 {Thousand/u} (Normal) Range : 140-400 MPV 11.4 fL (Normal) Range: 7.5-12. 5 ABSOLUTE NEUTROPHILS 6749 {cells/uL} (Normal) R juani: [phone] ABSOLUTE LYMPHOCYTES 1603 {cells/uL} (Normal) R juani: [phone] ABSOLUTE MONOCYTES 730 {cells/uL} (Normal) Rang e: 200-950 ABSOLUTE EOSINOPHILS 442 {cells/uL} (Normal) Ra nge: 15-500 ABSOLUTE BASOPHILS 77 {cells/uL} (Normal) Range : 0-200 NEUTROPHILS 70.3 % (Normal) LYMPHOCYTES 16.7 % (Normal) MONOCYTES 7.6 % (Normal) EOSINOPHILS 4.6 % (Normal) BASOPHILS 0.8 % (Normal) :54 [QLH] TSH, 3RD GENERATION W/REFLEX TO FT 4 Comments: REPORT COMMENT:FASTING:NO TSH, 3RD GENERATION W/REFLEX TO FT4 3.52 {MIU/L } (Normal) Range: 0.40-4.50 :09 [O] Hemoglobin A1c (in office) HEMOGLOBIN A1c 6.9 [id number]:09 Glucose (Point of Care In Office) Glucose POC Lifescan 145 Plan of Care Name Dates Details Planned Observations Planned Goals not documented Planned Encounters Appointment; BARON AYALA M.D. On: 01-Dec-2019 14:00 Appointment; TOOTIE MARTIN M.D. On: 18-Feb-2020 13:45 Interventions Provided Labs/Procedures/Imaging* [O] Hemoglobin A1c (in office); Done: 26 Aug 2019 * Glucose (Point of Care In Office); Done: 26 Aug 2019 Plan* 1) DM- continue invokana, Toujeo, januvia, * -eat better * -recheck a1c in 3 months * -capsaicin cream 0.075% up to 4x/day for neuropathy in conjunction with gabapantin * 2) lipids-continue statin and fenofibrate * -lipids in 3 months Instructions Name Dates Details Instructions not documented [...] documented On: 17-Jul-2018 11:00 Appointment; JESSE MILIAN APRN Encounter Diagnosis: Problem not documented On: 22-Jul-2018 [...] Diagnosis: Problem not documented On: 08-Jul-2019 15:00 Appointment; TOOTIE MARTIN M.D. Encounter Diagnosis: Problem not documented On: 19-Aug-2019 13:30 Appointment; BARON AYALA M.D. Encounter Diagnosis: Problem not documented On: 26-Aug-2019 14:00
--- OUTSIDE RECORDS SUMMARY | 2019-11-05 06:22 | XMS REPORT | Summary of Care ---
Author Author ALVIN MARTIN M.D. Organization Unknown Address Unknown Phone Unavailable Care Team Providers Care Picking Supervisor Name Role Phone VERONICA Pelletier, TOOTIE Unavailable Unavailable KELLY Pelletier, JOSELINE Unavailable Unavailable ABNER P.A., CARLO Unavailable Unavailable LUCY Pelletier, BARON Unavailable Unavailable VERONICA RAND PA, TOOTIE Dhillon Unavailable Unavailable KELLY RAND, JOSELINE Unavailable Unavailable JAY RAND PA, ANJUM Viera Unavailable Unavailable MAICOL PENDLETONP, JESSE Unavailable Unavailable LUCY RAND PA, BARON PHIPPS Unavailable Unavaildavid ORTEZ MD, MOUSTAFA Unavailable Unavailable GISELE RAND PA, JENNIFER BANERJEE Unavailable Unavailable Unavailable Unavailable Functional [...] Active Mixed hyperlipidemia (272.2, E78.2) Status: Active Renal insufficiency (593.9, N28.9) Status: Active Medications Name Dates Details Atorvastatin [...] M.D. * Start : 01-Apr-2019 Active Rich ParnelloStar 300 UNIT/ML Subcutaneous Solution Pen-injector INJECT 33 UNITS SUBCUTANEOUSLY AT BEDTIME TITRATE TO GOAL DIRECTED * Quantity: 3 Refills: 0 LUCY Pelletier BARON * Start : 10-Aug-2019 Active 3 x 1.5 [...] high dose seasonal, preservat brandon-free Lot #: [id number] on: 12-Apr-2017 Influenza, high dose seasonal, preservat brandon-free Lot #: [id number] on: 11-Mar-2018 Fluzone High-Dose 0.5 ML Intramuscular S uspension Prefilled Syringe on: 01-Mar-2019 Influenza on: Mar-2019 Influenza, high dose seasonal, preservat brandon-free Lot #: [id number] on: 13-Mar-2019 Prevnar 13 Intramuscular Suspension Lot #: [id number] on: 10-Jun-2019 Family History Name Dates Details Family history unknown (V49.89, Z78.9) Status: Active Name Dates Details Family history unknown (V49.89, Z78.9) Status: Active Social History Name Dates Details - Status: Name Dates Details Never smoked tobacco (finding) Vital Signs Date Test Result Details [id number]:08 Systolic blood pressure 112 mm[Hg] Status: Comments [...] LDL-C. Dylan CID et al. KALANI. 2013;310(19): 6092-1534 (http ://education.Weilos.com/faq/RXS447) CHOL/HDLC RATIO 3.8 {CALC} (Normal) Range: <5.0 [...] is approximately 13% higher for peopleidentified as -[place]. eGFR NON- 43 {ML/MIN/1.7} (Belo w low [...] 10-35 ALT 11 u/l (Normal) Range: 9-46 83-Zpf-176182:54 [[facility]] URINALYSIS, COMPLETE COLOR YELLOW (Normal) Range: [...] ABSOLUTE NEUTROPHILS 6749 {cells/uL} (Normal) R juani: 4190-3461 ABSOLUTE LYMPHOCYTES 1603 {cells/uL} (Normal) R juani: [...] Hemoglobin A1c (in office) HEMOGLOBIN A1c 6.9 57-Leq-373864:09 Glucose (Point of Care In Office) Glucose POC Lifescan 145 Plan of Care Name Dates Details Planned Observations Planned Goals not documented Planned Encounters Nephrology Referral Appointment; BARON AYALA M.D. On: 01-Dec-2019 14:00 Appointment; TOOTIE MARTIN M.D. On: 18-Feb-2020 13:45 Instructions Name Dates Details Instructions not documented [...]
--- OUTSIDE RECORDS SUMMARY | 2019-11-05 06:22 | XMS REPORT | Summary of Care ---
Author ALVIN Emerson M.D. Organization Unknown Address Unknown Phone Unavailable Care Team Providers Care Credit Rating Checker Name Role Phone VERONICA Pelletier, TOOTIE Unavailable Unavailable KELLY Pelletier, JOSELINE Unavailable Unavailable ABNER P.A., CARLO Unavailable Unavailable LUCY Pelletier, BARON Unavailable Unavailable VERONICA RAND [place], TOOTIE Dhillon Unavailable Unavailable KELLY RAND, JOSELINE Unavailable Unavailable JAY RAND [place], ANJUM Viera Unavailable Unavailable MAICOL PENDLETONP, JESSE Unavailable Unavailable LUCY RAND [place], BARON PHIPPS Unavailable Unavaildavid ORTEZ MD, MOUSTAFA Unavailable Unavailable GISELE RAND [place], JENNIFER BANERJEE Unavailable Unavailable Unavailable Unavailable Functional [...] artery disease) (414.00, I 25.10) Status: Active Need for Tdap vaccination (V06.1, Z23) Status: Active Need for zoster vaccination (V04.89, Z23 ) Status: Active Acute pain of right knee (719.46, M25.56 1) Status: Active Acute low back pain with [...] Active Mixed hyperlipidemia (272.2, E78.2) Status: Active GERD without esophagitis (530.81, K21.9) Status: Active Medications Name Dates Details Atorvastatin [...] high dose seasonal, preservat brandon-free Lot #: [id number] on: 12-Apr-2017 Influenza, high dose seasonal, preservat brandon-free Lot #: [id number] on: 11-Mar-2018 Fluzone High-Dose 0.5 ML Intramuscular S uspension Prefilled Syringe on: 01-Mar-2019 Influenza on: Mar-2019 Influenza, high dose seasonal, preservat brandon-free Lot #: [id number] on: 13-Mar-2019 Prevnar 13 Intramuscular Suspension Lot #: [id number] on: 10-Jun-2019 Family History Name Dates Details Family history unknown (V49.89, Z78.9) Status: Active Name Dates Details Family history unknown (V49.89, Z78.9) Status: Active Social History Name Dates Details - Status: Name Dates Details Never smoked tobacco (finding) Vital Signs Date Test Result Details [id number]-[id number]:28 Systolic blood pressure 117 mm[Hg] Status: Comments : Position: Sitting Diastolic blood pressure 66 mm[Hg] Status: Comment s: Position: Sitting Body height 64 in Status: Weight 233.4375 lb Status: Body mass index (BMI) [Ratio] 40.07 kg/m2 Status: Body surface area Derived from formula 2.09 m2 S tatus: Body temperature 98.2 f Status: Comments: Me thod: Temporal Heart Rate 83 /min Status: Results Date Description Value Details :54 [Q] LIPID PANEL WITH REFLEX TO DIRECT L [...] LDL-C. Dylan CID et al. KALANI. 2013;310(19): 3387-3006 (http ://education.[employer].SimpleHoney/faq/LFY414) CHOL/HDLC RATIO 3.8 {CALC} (Normal) Range: <5.0 NON HDL CHOLESTEROL 130 {MG/DL__CAL} (Above hig h threshold) Range: <130 Comments: For patients with diabetes plus 1 major ASCVD risk factor, treating to a non-HDL-C goal of <100 mg/dL (LDL-C of <70 mg/dL) is considered a therapeutic option. :54 [QL] CMP W/EGFR GLUCOSE 149 mg/dl (Above high threshold ) Range: 65-139 Comments: Non-fasting reference interval UREA NITROGEN (BUN) 32 mg/dl (Above high thresh old) Range: 7-25 CREATININE 1.58 mg/dl (Above high threshol d) Range: 0.70-1.18 Comments: For patients >49 years of age, the reference limitfor Creatinine is approximately 13% higher for peopleidentified as -[place] Citizen. eGFR NON- 43 {ML/MIN/1.7} (Belo w low [...] 10-35 ALT 11 u/l (Normal) Range: 9-46 :54 [QLH] URINALYSIS, COMPLETE COLOR YELLOW (Normal) Range: YELLOW [...] ABSOLUTE NEUTROPHILS 6749 {cells/uL} (Normal) R juani: [phone] ABSOLUTE LYMPHOCYTES 1603 {cells/uL} (Normal) R juani: 850-3900 ABSOLUTE MONOCYTES 730 {cells/uL} (Normal) Rang e: 200-950 ABSOLUTE EOSINOPHILS 442 {cells/uL} (Normal) Ra nge: 15-500 ABSOLUTE BASOPHILS 77 {cells/uL} (Normal) Range : 0-200 NEUTROPHILS 70.3 % (Normal) LYMPHOCYTES 16.7 % (Normal) MONOCYTES 7.6 % (Normal) EOSINOPHILS 4.6 % (Normal) BASOPHILS 0.8 % (Normal) 81-Wgx-690109:54 [facility] TSH, 3RD GENERATION W/REFLEX TO FT 4 Comments: REPORT COMMENT:FASTING:NO TSH, 3RD GENERATION W/REFLEX TO FT4 3.52 {MIU/L } (Normal) Range: 0.40-4.50 Plan of Care Name Dates Details Planned Observations Planned Goals not documented Planned Encounters Appointment; BARON AYALA M.D. On: 26-Aug-2019 14:00 Appointment; TOOTIE MARTIN M.D. On: 18-Feb-2020 [...]
--- OUTSIDE RECORDS SUMMARY | 2019-11-05 06:22 | XMS REPORT | Summary of Care ---
Author ALVIN Emerson M.D. Organization Unknown Address Unknown Phone Unavailable Care Team Providers Care Bandage Wrapping Machine Operator Name Role Phone VERONICA Pelletier, TOOTIE Unavailable Unavailable KELLY Pelletier, JOSELINE Unavailable Unavailable ABNER P.A., CARLO Unavailable Unavailable LUCY Pelletier, BARON Unavailable Unavailable VERONICA RAND [place], TOOTIE Dhillon Unavailable Unavailable KELLY RAND, JOSELINE Unavailable Unavailable JAY RAND [place], ANJUM Viera Unavailable Unavailable MAICOL PENDLETONP, JESSE Unavailable Unavailable LUCY RAND [place], BARON PHIPPS Unavailable Unavaildavid ORTEZ MD, MOUSTAFA Unavailable Unavailable GISELE RAND [place], JENNIFER BANERJEE Unavailable Unavailable Unavailable Unavailable Functional [...] high dose seasonal, preservat brandon-free Lot #: [id number] on: 12-Apr-2017 Influenza, high dose seasonal, preservat brandon-free Lot #: [id number] on: 11-Mar-2018 Fluzone High-Dose 0.5 ML Intramuscular S uspension Prefilled Syringe on: 01-Mar-2019 Influenza on: Mar-2019 Influenza, high dose seasonal, preservat brandon-free Lot #: [id number] on: 13-Mar-2019 Prevnar 13 Intramuscular Suspension Lot #: [id number] on: 10-Jun-2019 Family History Name Dates Details Family history unknown (V49.89, Z78.9) Status: Active Name Dates Details Family history unknown (V49.89, Z78.9) Status: Active Social History Name Dates Details - Status: Name Dates Details Never smoked tobacco (finding) Vital Signs Date Test Result Details [id number]-[id number]:08 Systolic blood pressure 112 mm[Hg] Status: Comments [...] LDL-C. Dylan SS et al. KALANI. 2013;310(19): 1968-1748 (http ://education.Dinglepharb.Clarient/faq/BWW724) CHOL/HDLC RATIO 3.8 {CALC} (Normal) Range: <5.0 [...] is approximately 13% higher for peopleidentified as -[place]er. eGFR NON- 43 {ML/MIN/1.7} (Belo w low [...] 10-35 ALT 11 u/l (Normal) Range: 9-46 13-Zhx-588157:54 [[facility]] URINALYSIS, COMPLETE COLOR YELLOW (Normal) Range: YELLOW [...] ABSOLUTE NEUTROPHILS 6749 {cells/uL} (Normal) R juani: 2732-0252 ABSOLUTE LYMPHOCYTES 1603 {cells/uL} (Normal) R juani: [...] Hemoglobin A1c (in office) HEMOGLOBIN A1c 6.9 76-Rxp-860703:09 Glucose (Point of Care In Office) Glucose POC Lifescan 145 Plan of Care Name Dates Details Planned Observations Planned Goals not documented Planned Encounters Appointment; BARON AYALA M.D. On: 01-Dec-2019 14:00 Appointment; TOOTIE MARTIN M.D. On: 18-Feb-2020 13:45 Interventions Provided Medication Changes* Furosemide 40 MG [...]
--- OUTSIDE RECORDS SUMMARY | 2019-11-05 06:22 | XMS REPORT | Summary of Care ---
Author Author ALVIN Nash M.A. Organization Unknown Address Unknown Phone Unavailable Care Team Providers Care Industrial Yard Brake Coupler Name Role Phone VERONICA Pelletier, TOOTIE Unavailable Unavailable KELLY Pelletier, JOSELINE Unavailable Unavailable Saad Smith, Liyah Unavailable Unavailable ABNER Du, CARLO Unavailable Unavailable LUCY Pelletier, BARON Unavailable Unavailable VERONICA RAND [place], TOOTIE Dhillon Unavailable Unavailable KELLY RAND, JOSELINE Unavailable Unavailable JAY RAND [place], ANJUM H Unavailable Unavailable MAICOL PENDLETONP, JESSE Unavailable Unavailable LUCY RAND [place], BARON PHIPPS Unavailable Unavaildavid ORTEZ MD, MOUSTAFJesse Unavailable Unavailable GISELE RAND [place], JENNIFER BANERJEE Unavailable Unavailable Unavailable Unavailable Functional [...] NEEDED. * Quantity: 90 Refills: 2 KELLY Vel.Donna, JOSELINE * Start : 01-Apr-2019 Active Rich SoloStar 300 UNIT/ML Subcutaneous Solution Pen-injector INJECT 33 UNITS SUBCUTANEOUSLY AT BEDTIME TITRATE TO GOAL DIRECTED * Quantity: 3 Refills: 0 AYALA Liyah, BARON * Start : 10-Aug-2019 Active 3 [...] high dose seasonal, preservat brandon-free Lot #: [id number] on: 12-Apr-2017 Influenza, high dose seasonal, preservat brandon-free Lot #: [id number] on: 11-Mar-2018 Fluzone High-Dose 0.5 ML Intramuscular S uspension Prefilled Syringe on: 01-Mar-2019 Influenza on: Mar-2019 Influenza, high dose seasonal, preservat brandon-free Lot #: [id number] on: 13-Mar-2019 Prevnar 13 Intramuscular Suspension Lot #: [id number] on: 10-Jun-2019 Family History Name Dates Details Family history unknown (V49.89, Z78.9) Status: Active Name Dates Details Family history unknown (V49.89, Z78.9) Status: Active Social History Name Dates Details - Status: Name Dates Details Never smoked tobacco (finding) Vital Signs Date Test Result Details [id number]:08 Systolic blood pressure 112 mm[Hg] Status: Comments [...] Status: Body temperature 98.2 f Status: Comments: Ks thod: Temporal Results Date Description Value Details [...] factors. LDL-C is now calculated using the Dylan-Kathryn calculation, which is a validated novel method providing better accuracy than the Friedewald equation in the estimation of LDL-C. Dylan CID et al. KALANI. 2013;310(19): 5105-5196 (http ://education.Dinnr.com/faq/UPQ352) CHOL/HDLC RATIO 3.8 {CALC} (Normal) Range: <5.0 [...] is approximately 13% higher for peopleidentified as -[place]. eGFR NON- 43 {ML/MIN/1.7} (Belo w low [...] 10-35 ALT 11 u/l (Normal) Range: 9-46 49-Eti-151510:54 [[facility]] URINALYSIS, COMPLETE COLOR YELLOW (Normal) Range: YELLOW [...] ABSOLUTE NEUTROPHILS 6749 {cells/uL} (Normal) R juani: [phone] ABSOLUTE LYMPHOCYTES 1603 {cells/uL} (Normal) R juani: [...] FT4 3.52 {MIU/L } (Normal) Range: 0.40-4.50 36-Ksk-062359:09 [O] Hemoglobin A1c (in office) HEMOGLOBIN A1c 6.9 22-Igz-164541:09 Glucose (Point of Care In Office) Glucose [...]
--- OUTSIDE RECORDS SUMMARY | 2019-11-05 06:22 | XMS REPORT | Summary of Care ---
Author Author ALVIN MARTIN M.D. Organization Unknown Address Unknown Phone Unavailable Care Team Providers Care Electric Distribution Checker Name Role Phone VERONICA Pelletier, TOOTIE [...] TABLET DAILY. * Quantity: 90 Refills: 0 M.A. Active Isosorbide Mononitrate 20 MG Oral Tablet [...] TAKE 1 TABLET DAILY. * Refills: 0 M.A. Active Aspirin 325 MG Oral Tablet TAKE 1 TABLET DAILY. * Refills: 0 M.A. Active Invokana 100 MG Oral Tablet TAKE [...] Quantity: 3 Refills: 0 BARON AYALA M.D. * Start : 10-Aug-2019 Active 3 x [...] high dose seasonal, preservat brandon-free Lot #: [id number] on: 12-Apr-2017 Influenza, high dose seasonal, preservat brandon-free Lot #: [id number] on: 11-Mar-2018 Fluzone High-Dose 0.5 ML Intramuscular S uspension Prefilled Syringe on: 01-Mar-2019 Influenza on: Mar-2019 Influenza, high dose seasonal, preservat brandon-free Lot #: [id number] on: 13-Mar-2019 Prevnar 13 Intramuscular Suspension Lot #: [id number] on: 10-Jun-2019 Family History Name Dates Details Family history unknown (V49.89, Z78.9) Status: Active Name Dates Details Family history unknown (V49.89, Z78.9) Status: Active Social History Name Dates Details - Status: Name Dates Details Never smoked tobacco (finding) Vital Signs Date Test Result Details [id number] Systolic blood pressure 117 mm[Hg] Status: Comments [...] Status: Results Date Description Value Details :54 [QH] [...] LDL-C. Dylan SS et al. KALANI. 2013;310(19): 4694-5232 (http ://education.[employer]anoNord.D-Sight/faq/GAD906) CHOL/HDLC RATIO 3.8 {CALC} (Normal) Range: <5.0 [...] is approximately 13% higher for peopleidentified as -Venezuelan. eGFR NON- 43 {ML/MIN/1.7} ([place]o w low [...] ABSOLUTE NEUTROPHILS 6749 {cells/uL} (Normal) R juani: [phone] ABSOLUTE LYMPHOCYTES 1603 {cells/uL} (Normal) R juani: [phone] ABSOLUTE MONOCYTES 730 {cells/uL} (Normal) Rang e: 200-950 ABSOLUTE EOSINOPHILS 442 {cells/uL} (Normal) Ra nge: 15-500 ABSOLUTE BASOPHILS 77 {cells/uL} (Normal) Range : 0-200 NEUTROPHILS 70.3 % (Normal) LYMPHOCYTES 16.7 % (Normal) MONOCYTES 7.6 % (Normal) EOSINOPHILS 4.6 % (Normal) BASOPHILS 0.8 % (Normal) [id number]-Oub-[id number]:54 [[facility]] TSH, 3RD GENERATION W/REFLEX TO FT 4 Comments: REPORT COMMENT:FASTING:NO TSH, 3RD GENERATION W/REFLEX TO FT4 3.52 {MIU/L } (Normal) Range: 0.40-4.50 Plan of Care Name Dates Details Planned Observations Planned Goals not documented Planned Encounters Appointment; BARON AYALA M.D. On: 26-Aug-2019 14:00 Appointment; TOOTIE MARTIN M.D. On: 18-Feb-2020 13:45 Interventions Provided Discussion/Summary* Your labs show decreased kidney function. I would like to refer you to the renal specialist if you do not see one already. Please let me know. Instructions Name Dates Details Instructions not documented Encounters Appointment; TOOTIE MARTIN M.D. Encounter Diagnosis: Problem not documented On: 28-Aug-2017 13:15 Appointment; BARON AYALA M.D. Encounter Diagnosis: Problem not documented On: 02-Oct-2017 14:00 Appointment; MERY BANDA M.D. Encounter Diagnosis: Problem not documented On: 17-Dec-2017 14:15 Appointment; LETYCAT, ROSA Encounter Diagnosis: Problem not documented On: [...]
--- OUTSIDE RECORDS SUMMARY | 2019-11-05 06:22 | XMS REPORT | Summary of Care ---
Author ALVIN Lowe M.A. Organization Unknown Address Unknown Phone Unavailable Care Team Providers Care Apparel Rental Clerk Name Role Phone VERONICA Pelletier, TOOTIE Unavailable Unavailable KELLY Pelletier, JOSELINE Unavailable Unavailable ABNER P.A., CARLO Unavailable Unavailable LUCY Pelletier, BARON Unavailable Unavailable VERONICA RAND [place], TOOTIE Dhillon Unavailable Unavailable KELLY RAND, JOSELINE Unavailable Unavailable JAY RAND [place], ANJUM Viera Unavailable Unavailable MAICOL PENDLETONP, JESSE Unavailable Unavailable LUCY RAND [place], BARON PHIPPS Unavailable Unavaildavid ORTEZ MD, MOUSTAFA Unavailable Unavailable GISELE RAND [place], JENNIFER BANERJEE Unavailable Unavailable Unavailable Unavailable Functional [...] kg/sq m (V85.39, Z68 .39) Status: Active Mixed hyperlipidemia (272.2, E78.2) Status: [...] hypertension, benign (401.1, I 10) Status: Active Medications Name Dates Details Atorvastatin [...] NEEDED. * Quantity: 90 Refills: 2 KELLY ePlletier JOSELINE * Start : 01-Apr-2019 Active Rich [...] 25.2) Status: Resolved Procedures Procedure Dates Details [QH] LIPID PANEL WITH REFLEX TO DIRECT LDL Date: 19-Aug-2019 [QLH] CMP W/EGFR Date: 19-Aug-2019 [QLH] TSH, 3RD GENERATION W/REFLEX TO FT4 Date: 19-Aug-2019 [QLH] CBC (INCLUDES DIFF/PLT) Date: 19-Aug-2019 [QLH] URINALYSIS, COMPLETE Date: 19-Aug-2019 History of Heart surgery Completed Immunization Name Dates Details Zoster (Zostavax) on: Jul-2011 Fluzone Quadrivalent 0.5 ML Intramuscula r Suspension on: 31-Mar-2016 Influenza, high dose seasonal, preservat hayden-free Lot #: [id number] on: 12-Apr-2017 Influenza, high dose seasonal, preservat hayden-free Lot #: [id number] on: 11-Mar-2018 Fluzone High-Dose 0.5 ML Intramuscular S uspension Prefilled Syringe on: 01-Mar-2019 Influenza on: Mar-2019 Influenza, high dose seasonal, preservat hayden-free Lot #: [id number] on: 13-Mar-2019 Prevnar 13 Intramuscular Suspension Lot #: [id number] on: 10-Jun-2019 Family History Name Dates Details Family history unknown (V49.89, Z78.9) Status: Active Name Dates Details Family history unknown (V49.89, Z78.9) Status: Active Social History Name Dates Details - Status: Name Dates Details Never smoker Vital Signs Date Test Result Details [id number] BP Systolic 117 mm[Hg] Status: Comments: Po sition: Sitting BP Diastolic 66 mm[Hg] Status: Comments: Po sition: Sitting Height 64 in Status: Weight 233.4375 lb Status: Body Mass Index Calculated 40.07 kg/m2 Status: Body Surface Area Calculated 2.09 m2 Status: Temperature 98.2 f Status: Comments: Me thod: Temporal Heart Rate 83 /min Status: Results Date Description Value Details Results not documented Plan of Care Name Dates Details Planned Observations Planned Goals not documented Planned Encounters Appointment; BARON AYALA M.D. On: 26-Aug-2019 14:00 Appointment; TOOTIE MARTIN M.D. On: 18-Feb-2020 13:45 Interventions Provided Medication Changes* Atorvastatin Calcium 80 MG Oral Tablet - Renew * Esomeprazole Magnesium 40 MG Oral Capsule Delayed Release - Renew * Fenofibrate 145 MG Oral Tablet - Renew * Isosorbide Mononitrate 20 MG Oral Tablet - Renew Labs/Procedures/Imaging* [QH] LIPID PANEL WITH REFLEX TO DIRECT LDL; To Be Done: 19 Aug 2019 * [QLH] CBC (INCLUDES DIFF/PLT); To Be Done: 19 Aug 2019 * [QLH] CMP W/EGFR; To Be Done: 19 Aug 2019 * [QLH] TSH, 3RD GENERATION W/REFLEX TO FT4; To Be Done: 19 Aug 2019 * [QLH] URINALYSIS, COMPLETE; To Be Done: 19 Aug 2019 Instructions Name Dates Details Instructions not documented [...]
--- OUTSIDE RECORDS SUMMARY | 2019-11-05 06:22 | XMS REPORT | Summary of Care ---
Author Author ALVIN Garcia M.A. Organization Unknown Address [facility] Phone Unavailable Care Team Providers Care Roofer Metal Name Role Phone VERONICA Pelletier, TOOTIE Unavailable Unavailable KELLY Pelletier, JOSELINE Unavailable Unavailable ABNER P.Talisha, CARLO Unavailable Unavailable LUCY Pelletier, BARON Unavailable Unavailable VERONICA RAND [place], TOOTIE Dhillon Unavailable Unavailable KELLY RAND, JOSELINE Unavailable Unavailable JAY RAND [place], ANJUM Viera Unavailable Unavailable MAICOL PENDLETONP, JESSE Unavailable Unavailable LUCY RAND [place], BARON PHIPPS Unavailable Unavaildavid ORTEZ MD, MARGARETUSTAFJesse Unavailable Unavailable GISELE RAND [place], JENNIFER BANERJEE Unavailable Unavailable Unavailable Unavailable Functional [...] NEEDED. * Quantity: 90 Refills: 2 KELLY M.D., JOSELINE * Start : 01-Apr-2019 Active Rich Velázquezar 300 UNIT/ML Subcutaneous Solution Pen-injector INJECT 33 UNITS SUBCUTANEOUSLY AT BEDTIME TITRATE TO GOAL DIRECTED * Quantity: 3 Refills: 0 LUCY PelletierBARON * Start : 10-Aug-2019 Active 3 x [...] high dose seasonal, preservat brandon-free Lot #: [id number] on: 12-Apr-2017 Influenza, high dose seasonal, preservat brandon-free Lot #: [id number] on: 11-Mar-2018 Fluzone High-Dose 0.5 ML Intramuscular S uspension Prefilled Syringe on: 01-Mar-2019 Influenza on: Mar-2019 Influenza, high dose seasonal, preservat brandon-free Lot #: [id number] on: 13-Mar-2019 Prevnar 13 Intramuscular Suspension Lot #: [id number] on: 10-Jun-2019 Family History Name Dates Details Family history unknown (V49.89, Z78.9) Status: Active Name Dates Details Family history unknown (V49.89, Z78.9) Status: Active Social History Name Dates Details - Status: Name Dates Details Never smoked tobacco (finding) Vital Signs Date Test Result Details [id number] Systolic blood pressure 112 mm[Hg] Status: Comments [...] LDL-C. Dylan CID et al. KALANI. 2013;310(19): 0861-7572 (http ://education.rSmart.com/faq/KEK375) CHOL/HDLC RATIO 3.8 {CALC} (Normal) Range: <5.0 [...] is approximately 13% higher for peopleidentified as -Fijian. eGFR NON- 43 {ML/MIN/1.7} (Belo w low [...] 10-35 ALT 11 u/l (Normal) Range: 9-46 14-Gej-971414:54 [[facility]] URINALYSIS, COMPLETE COLOR [...] ABSOLUTE NEUTROPHILS 6749 {cells/uL} (Normal) R juani: [phone] ABSOLUTE LYMPHOCYTES 1603 {cells/uL} (Normal) R juani: [...] FT4 3.52 {MIU/L } (Normal) Range: 0.40-4.50 58-Gyr-077352:09 [O] Hemoglobin A1c (in office) HEMOGLOBIN A1c 6.9 93-Tqi-285297:09 Glucose (Point of Care In Office) Glucose POC Lifescan 145 Plan of Care Name Dates Details Planned Observations Planned Goals not documented Planned Encounters Appointment; BARON AYALA M.D. On: 01-Dec-2019 14:00 Appointment; TOOTIE MARTIN M.D. On: 18-Feb-2020 13:45 Interventions Provided Follow-ups/Referrals* Nephrology Referral; To Be Done: 31 Aug 2019 Instructions Name Dates Details Instructions [...]
--- OUTSIDE RECORDS SUMMARY | 2019-11-05 06:22 | XMS REPORT | Summary of Care ---
Author Author ALVIN MARTIN M.D. Organization Unknown Address Unknown Phone Unavailable Care Team Providers Care Switchman Name Role Phone VERONICA Pelletier, TOOTIE Unavailable Unavailable KELLY Pelletier, JOSELINE Unavailable Unavailable ABNER P.A., CARLO Unavailable Unavailable LUCY Pelletier, BARON Unavailable Unavailable VERONICA RAND [place], TOOTIE Dhillon Unavailable Unavailable KELLY RAND, JOSELINE Unavailable Unavailable JAY RAND [place], ANJUM Viera Unavailable Unavailable MAICOL PENDLETONP, JESSE Unavailable Unavailable LUCY RAND [place], BARON PHIPPS Unavailable Unavaildavid ORTEZ MD, MOUSTAFA Unavailable Unavailable GISELE RAND [place], JENNIFER BANERJEE Unavailable Unavailable Unavailable Unavailable Functional [...] TIMES DAILY. * Quantity: 3 Refills: 3 BRAON AYALA M.D. * Start : 23-Apr-2017 Active [...] MENDOZA M.D. * Start : 01-Apr-2019 Active Toujeo SoloStar 300 UNIT/ML Subcutaneous Solution [...] WITH REFLEX TO DIRECT LDL Date: 19-Aug-2019 [QL] CMP W/EGFR Date: 19-Aug-2019 [QL] TSH, 3RD GENERATION W/REFLEX TO FT4 Date: 19-Aug-2019 [QL] CBC (INCLUDES DIFF/PLT) Date: 19-Aug-2019 [QL] URINALYSIS, COMPLETE Date: 19-Aug-2019 History of Heart surgery Completed Immunization Name Dates Details Zoster (Zostavax) on: Jul-2011 Fluzone Quadrivalent 0.5 ML Intramuscula r Suspension on: 31-Mar-2016 Influenza, high dose seasonal, preservat hayden-free Lot #: [id number] on: 12-Apr-2017 Influenza, high dose seasonal, preservat hayden-free Lot #: [id number] on: 11-Mar-2018 Fluzone High-Dose 0.5 ML Intramuscular S uspension Prefilled Syringe on: 01-Mar-2019 Influenza on: Mar-2019 Influenza, high dose seasonal, preservat hayden-free Lot #: [id number] on: 13-Mar-2019 Prevnar 13 Intramuscular Suspension Lot #: [id number] on: 10-Jun-2019 Family History Name Dates Details Family history unknown (V49.89, Z78.9) Status: Active Name Dates Details Family history unknown (V49.89, Z78.9) Status: Active Social History Name Dates Details - Status: Name Dates Details Never smoker Vital Signs Date Test Result Details [id number]:28 BP Systolic 117 mm[Hg] Status: Comments: Po [...] COMPLETE; To Be Done: 19 Aug 2019 Plan* cont current meds * diet and exercise * check labs * f/u prn or 6 months. Instructions Name Dates Details Instructions not documented [...]
--- OUTSIDE RECORDS SUMMARY | 2019-11-05 06:22 | XMS REPORT | Summary of Care ---
Author ALVIN Emerson M.D. Organization Unknown Address Unknown Phone Unavailable Care Team Providers Care Manager Of Planning Name Role Phone VERONICA Pelletier, TOOTIE Unavailable Unavailable KELLY Pelletier, JOSELINE Unavailable Unavailable ABNER P.A., CARLO Unavailable Unavailable LUCY Pelletier, BARON Unavailable Unavailable VERONICA RAND [place], TOOTIE Dhillon Unavailable Unavailable KELLY RAND, JOSELINE Unavailable Unavailable JAY RAND [place], ANJUM Viera Unavailable Unavailable MAICOL PENDLETONP, JESSE Unavailable Unavailable LUCY RAND [place], BARON PHIPPS Unavailable Unavaildavid ORTEZ MD, MOUSTAFA Unavailable Unavailable GISELE RAND [place], JENNIFER BANERJEE Unavailable Unavailable Unavailable Unavailable Functional [...] Pelletier JOSELINE * Start : 01-Apr-2019 Active Rich [...] high dose seasonal, preservat hayden-free Lot #: [id number] on: 12-Apr-2017 Influenza, high dose seasonal, preservat hayden-free Lot #: [id number] on: 11-Mar-2018 Fluzone High-Dose 0.5 ML Intramuscular S uspension Prefilled Syringe on: 01-Mar-2019 Influenza on: Mar-2019 Influenza, high dose seasonal, preservat hayden-free Lot #: [id number] on: 13-Mar-2019 Prevnar 13 Intramuscular Suspension Lot #: [id number] on: 10-Jun-2019 Family History Name Dates Details [...] On: 26-Aug-2019 14:00 Interventions Provided Medication Changes* Toujeo SoloStar 300 UNIT/ML Subcutaneous Solution Pen- injector - Renew Instructions Name Dates Details Instructions not documented Encounters Appointment; TOOTIE MARTIN M.D. Encounter Diagnosis: Problem not documented On: 28-Aug-2017 13:15 Appointment; BARON AYALA M.D. Encounter Diagnosis: Problem not documented On: 02-Oct-2017 14:00 Appointment; MERY BANDA M.D. Encounter Diagnosis: Problem not documented On: 17-Dec-2017 14:15 Appointment; [facility] [place] Encounter Diagnosis: Problem not documented On: [...] not documented On: 20-Aug-2018 8:40 Appointment; TOOTIE MRATIN M.D. Encounter Diagnosis: Problem not documented On: [...]
--- OUTSIDE RECORDS SUMMARY | 2019-11-05 06:22 | XMS REPORT | Summary of Care ---
Author ALVIN Emerson M.D. Organization Unknown Address Unknown Phone Unavailable Care Team Providers Care Frame Expander Name Role Phone VERONICA Pelletier, TOOTIE Unavailable Unavailable KELLY Pelletier, JOSELINE Unavailable Unavailable ABNER P.A., CARLO Unavailable Unavailable LUCY Pelletier, BARON Unavailable Unavailable VERONICA RAND [place], TOOTIE Dhillon Unavailable Unavailable KELLY RAND, JOSELINE Unavailable Unavailable JAY RAND [place], ANJUM Viera Unavailable Unavailable MAICOL PENDLETONP, JESSE Unavailable Unavailable LUCY RAND [place], BARON PHIPPS Unavailable Unavaildavid ORTEZ MD, MOUSTAFA Unavailable Unavailable GISELE RAND [place], JENNIFER BANERJEE Unavailable Unavailable Unavailable Unavailable Functional [...] high dose seasonal, preservat brandon-free Lot #: [id number] on: 12-Apr-2017 Influenza, high dose seasonal, preservat brandon-free Lot #: [id number] on: 11-Mar-2018 Fluzone High-Dose 0.5 ML Intramuscular S uspension Prefilled Syringe on: 01-Mar-2019 Influenza on: Mar-2019 Influenza, high dose seasonal, preservat brandon-free Lot #: [id number] on: 13-Mar-2019 Prevnar 13 Intramuscular Suspension Lot #: [id number] on: 10-Jun-2019 Family History Name Dates Details Family history unknown (V49.89, Z78.9) Status: Active Name Dates Details Family history unknown (V49.89, Z78.9) Status: Active Social History Name Dates Details - Status: Name Dates Details Never smoked tobacco (finding) Vital Signs Date Test Result Details 63-[id number]:08 Systolic blood pressure 112 mm[Hg] Status: Comments [...] LDL-C. Dylan SS et al. KALANI. 2013;310(19): 1554-8924 (http ://education.[employer].Peers App/faq/ZLL898) CHOL/HDLC RATIO 3.8 {CALC} (Normal) Range: <5.0 [...] is approximately 13% higher for peopleidentified as -Burmese. eGFR NON- 43 {ML/MIN/1.7} (Belo w low [...] 10-35 ALT 11 u/l (Normal) Range: 9-46 01-Hau-726255:54 [[facility]] URINALYSIS, COMPLETE COLOR YELLOW (Normal) [...] ABSOLUTE NEUTROPHILS 6749 {cells/uL} (Normal) R juani: [phone] ABSOLUTE LYMPHOCYTES 1603 {cells/uL} (Normal) R juani: [...] Hemoglobin A1c (in office) HEMOGLOBIN A1c 6.9 89-Lok-058462:09 Glucose (Point of Care In Office) Glucose POC Lifescan 145 Plan of Care Name Dates Details Planned Observations Planned Goals not documented Planned Encounters Appointment; BARON AYALA M.D. On: 01-Dec-2019 14:00 Appointment; TOOTIE MARTIN M.D. On: 18-Feb-2020 13:45 Interventions Provided Labs/Procedures/Imaging* [O] Hemoglobin A1c (in office); Done: 26 Aug 2019 * Glucose (Point of Care In Office); Done: 26 Aug 2019 Instructions Name Dates Details Instructions [...]
--- OUTSIDE RECORDS SUMMARY | 2019-11-05 06:23 | XMS REPORT | Summary of Care ---
Author Author ALVIN THOMPSON M.D. Organization Unknown Address [facility] Phone Unavailable Care Team Providers Care Leaf Sorter Name Role Phone VERONICA Pelletier, TOOTIE Unavailable Unavailable KELLY Pelletier, JOSELINE Unavailable Unavailable ABNER P.A., CARLO Unavailable Unavailable LUCY Pelletier, BARON Unavailable Unavailable VERONICA RAND [place], TOOTIE Dhillon Unavailable Unavailable KELLY RAND, JOSELINE Unavailable Unavailable JAY RAND [place], ANJUM Viera Unavailable Unavailable MAICOL PENDLETONP, JESSE Unavailable Unavailable LUCY RAND [place], BARON PHIPPS Unavailable Unavaildavid ORTEZ MD, MOUSTAFA Unavailable Unavailable GISELE RAND [place], JENNIFER BANERJEE Unavailable Unavailable Unavailable Unavailable Functional [...] Pelletier, JOSELINE * Start : 01-Apr-2019 Active Rich [...] high dose seasonal, preservat hayden-free Lot #: [id number] on: 12-Apr-2017 Influenza, high dose seasonal, preservat hayden-free Lot #: [id number] on: 11-Mar-2018 Fluzone High-Dose 0.5 ML Intramuscular S uspension Prefilled Syringe on: 01-Mar-2019 Influenza on: Mar-2019 Influenza, high dose seasonal, preservat hayden-free Lot #: [id number] on: 13-Mar-2019 Prevnar 13 Intramuscular Suspension Lot #: [id number] on: 10-Jun-2019 Family History Name Dates Details Family history unknown (V49.89, Z78.9) Status: Active Name Dates Details Family history unknown (V49.89, Z78.9) Status: Active Social History Name Dates Details - Status: Name Dates Details Never smoked tobacco (finding) Vital Signs Date Test Result Details No [...] Problem not documented On: 17-Dec-2017 14:15 [facility] Encounter Diagnosis: Problem not documented On: 27-Dec-2017 [...]
--- OUTSIDE RECORDS SUMMARY | 2019-11-05 06:23 | XMS REPORT | Summary of Care ---
Author ALVIN Emerson M.D. Organization Unknown Address Unknown Phone Unavailable Care Team Providers Care Straight Pin Making Machine Operator Name Role Phone VERONICA Pelletier, TOOTIE Unavailable Unavailable KELLY Pelletier, JOSELINE Unavailable Unavailable ABNER P.A., ACRLO Unavailable Unavailable LUCY Pelletier, BARON Unavailable Unavailable VERONICA RAND [place], TOOTIE Dhillon Unavailable Unavailable KELLY RAND, JOSELINE Unavailable Unavailable JAY RAND [place], ANJUM Viera Unavailable Unavailable MAICOL PENDLETONP, JESSE Unavailable Unavailable LUCY RAND [place], BARON PHIPPS Unavailable Unavaildavid ORTEZ MD, MOUSTAFA Unavailable Unavailable GISELE RAND [place], JENNIFER BANERJEE Unavailable Unavailable Unavailable Unavailable Functional [...] EVERY DAY DIRECTED * Quantity: 1 Refills: 1 BARON AAYLA M.D. * Start : 17-Apr-2017 Active 100 [...] high dose seasonal, preservat hayden-free Lot #: [id number] on: 12-Apr-2017 Influenza, high dose seasonal, preservat hayden-free Lot #: [id number] on: 11-Mar-2018 Fluzone High-Dose 0.5 ML Intramuscular S uspension Prefilled Syringe on: 01-Mar-2019 Influenza on: Mar-2019 Influenza, high dose seasonal, preservat hayden-free Lot #: [id number] on: 13-Mar-2019 Prevnar 13 Intramuscular Suspension Lot #: [id number] on: 10-Jun-2019 Family History Name Dates Details [...] On: 18-Feb-2020 13:45 Interventions Provided Medication Changes* BD Pen Needle Mini U/F 31G X 5 MM - Renew Instructions Name Dates Details Instructions not documented Encounters Appointment; MERY BANDA M.D. Encounter Diagnosis: Problem not documented On: 17-Dec-2017 14:15 Appointment; KERRIE, ECHO Encounter Diagnosis: Problem not documented On: 27-Dec-2017 [...]
--- OUTSIDE RECORDS SUMMARY | 2019-11-05 06:23 | XMS REPORT | Summary of Care ---
Author ALVIN Farr R.N. Organization Unknown Address [facility] Phone Unavailable Care Team Providers Care Plastic Tile Setter Name Role Phone VERONICA Pelletier, TOOTIE Unavailable Unavailable KELLY Pelletier, JOSELINE Unavailable Unavailable ABNER P.A., CARLO Unavailable Unavailable LUCY Pelletier, BARON Unavailable Unavailable VERONICA RAND [place], TOOTIE Dhillon Unavailable Unavailable KELLY RAND, JOSELINE Unavailable Unavailable JAY RAND [place], ANJUM Viera Unavailable Unavailable MAICOL PENDLETONP, JESSE Unavailable Unavailable LUCY RAND [place], BARON PHIPPS Unavailable Unavaildavid ORTEZ MD, MOUSTAFJesse Unavailable Unavailable GISELE RAND [place], JENNIFER BANERJEE [...] EVERY DAY * Quantity: 90 Refills: 1 TOTOIE MARTIN M.D. * Start : 19-Aug-2018 Active Esomeprazole Magnesium 40 MG Oral Capsule Delayed Release TAKE 1 CAPSULE BY MOUTH EVERY DAY * Quantity: 90 Refills: 1 TOOTIE MARTIN M.D. * Start : 28-Oct-2017 Active BD Pen Needle Mini U/F 31G X 5 MM USE EVERY DAY DIRECTED * Quantity: 1 Refills: 1 BARON AYALA M.D. * Start [...] JOSELINE * Start : 01-Apr-2019 Active Rich ParnelloStar [...] high dose seasonal, preservat hayden-free Lot #: [id number] on: 12-Apr-2017 Influenza, high dose seasonal, preservat hayden-free Lot #: [id number] on: 11-Mar-2018 Fluzone High-Dose 0.5 ML Intramuscular S uspension Prefilled Syringe on: 01-Mar-2019 Influenza on: Mar-2019 Influenza, high dose seasonal, preservat hayden-free Lot #: [id number] on: 13-Mar-2019 Prevnar 13 Intramuscular Suspension Lot #: [id number] on: 10-Jun-2019 Family History Name Dates Details [...] Problem not documented On: 17-Dec-2017 14:15 Appointment; ANSHUL-, ECHO Encounter Diagnosis: Problem not documented On: [...]
[2019-11-05 09:10] VITALS: BP 127/71
== END | disposition home or self-care (01) ==
LOC: OR 06:13
PROVIDERS: ATTEND Internal Medicine Gastroenterology
DX: Z09 Encounter for follow-up examination after completed treatment for conditions other than malignant neoplasm (principal); Z86.010 Personal history of colon polyps; Z71.3 Dietary counseling and surveillance; I10 Essential (primary) hypertension; E11.9 Type 2 diabetes mellitus without complications; E66.9 Obesity, unspecified; K57.30 Diverticulosis of large intestine without perforation or abscess without bleeding; K64.8 Other hemorrhoids; K21.9 Gastro-esophageal reflux disease without esophagitis; I25.810 Atherosclerosis of coronary artery bypass graft(s) without angina pectoris; I25.2 Old myocardial infarction; I11.0 Hypertensive heart disease with heart failure; I50.9 Heart failure, unspecified; Z01.810 Encounter for preprocedural cardiovascular examination; Z01.812 Encounter for preprocedural laboratory examination; Z11.59 Encounter for screening for other viral diseases; Z79.84 Long term (current) use of oral hypoglycemic drugs; Z79.02 Long term (current) use of antithrombotics/antiplatelets; Z79.82 Long term (current) use of aspirin; Z79.4 Long term (current) use of insulin; Z68.39 Body mass index [BMI] 39.0-39.9, adult; Z86.73 Personal history of transient ischemic attack (TIA), and cerebral infarction without residual deficits; Z95.1 Presence of aortocoronary bypass graft
CPT/HCPCS: 36415 ×2; 45378; 82948; 85025; 87635; 93005; J2001; J2704

== ENCOUNTER 2024-09-16 11:09 | Emergency (ER) | payer MEDICARE ==
[~2024-09-16] VITALS: Ht 160 cm; Wt 84.4 kg
[~2024-09-16 11:09] MED LIST changes: -LIDOCAINE HCL 2% LOCAL INJ 5 ML SDV VIAL INJ ONE; -PROPOFOL IV EMULSION 10 MG/ML 20 ML VIAL ONE
[2024-09-16 12:26] VITALS: PULSE 77; RESP 18; TEMP 97.2; O2SAT 98
== END 2024-09-16 12:26 | disposition home or self-care (01) ==
LOC: FSED 11:12
DX: S01.511A Laceration without foreign body of lip, initial encounter (principal); W01.0XXA Fall on same level from slipping, tripping and stumbling without subsequent striking against object, initial encounter; Y93.01 Activity, walking, marching and hiking; Y92.89 Other specified places as the place of occurrence of the external cause; I10 Essential (primary) hypertension; E11.9 Type 2 diabetes mellitus without complications; E78.5 Hyperlipidemia, unspecified; Z79.02 Long term (current) use of antithrombotics/antiplatelets; Z86.73 Personal history of transient ischemic attack (TIA), and cerebral infarction without residual deficits; Z95.1 Presence of aortocoronary bypass graft
CPT/HCPCS: 70450; 70486; 99283